=== PATIENT | male | born 1970 | race Caucasian/White ===

== ENCOUNTER 2020-05-04 11:26 | Emergency (ER) | payer SELFPAY ==
[2020-05-04 11:43] VITALS: BP 127/79; PULSE 86; RESP 14; TEMP 36.4; O2SAT 97; BMI 24.3
--- NOTE | 2020-05-04 11:44 | W.ED.EXTPRO ---
HPI - Extremity Problem General: Chief complaint: Fall Stated complaint: R SHOULDER PAIN/INJURY Time Seen by Provider: 05/04/20 11:44 Source: patient Mode of arrival: ambulatory Limitations: no limitations History of Present Illness: HPI Narrative: Patient is a 49-year-old male who presents to ED today reporting that approximately 10 days ago he fractured his left ankle while in [place]. Patient has since traveled back home to [place] and reports he needs a referral for orthopedic follow-up. He states while in [place] another individual accidentally landed onto his ankle causing the fracture. [facility] where extremity was splinted. He has been non-weightbearing since the injury. He does not have any form of discharge papers with him. MD Complaint: joint pain (L ankle) Onset (ago): day(s) Pain Consistency: constant Location: left and lower extremity Radiation: none Associated symptoms: Reports no associated symptoms; Deny chest pain or fever(s) Context: other (recent known fracture) Review of Systems Const: Denies: fever(s) or chills Card: Denies: chest pain Resp: Denies: dyspnea GI: Denies: nausea or vomiting Musc: Reports: joint pain (L ankle); Denies: neck pain, back pain, extremity pain or extremity swelling Physical Exam Const: COMMON NORMALS: no acute distress, average body habitus, patient oriented x3, no limitations, healthy appearing, alert and well nourished GENERAL APPEARANCE: cooperative ORIENTATION/CONSCIOUSNESS: Yes awake, Yes oriented to person, Yes oriented to place and Yes oriented to time Extremity: NARRATIVE EXTREMITY EXAM: R shoulder in sling from rotator cuff surgery that was performed several weeks ago. His L ankle/leg is placed in a short leg posterior splint; toes with some ecchymosis present; toes are warm to the touch with normal cap refill; splint was not removed GENERAL: Yes normal exam except as noted Neuro: COMMON NORMALS: patient oriented x3, moves all extremities, no focal motor deficits, no sensory deficits noted and gait normal (with crutches ) SENSORIUM/ORIENTATION: Yes alert, Yes oriented to person, Yes oriented to place and Yes oriented to time Course Vital Signs: Vital signs: Vital Signs Temperature 97.6 F 05/04/20 11:43 Pulse Rate 86 05/04/20 11:43 Respiratory Rate 14 05/04/20 11:43 Blood Pressure 127/79 05/04/20 11:43 Pulse Oximetry 97 05/04/20 11:43 MDM - Extremity (Nontraumatic) Imaging Data^: XR L ankle: Radiologist's impression: [employer] [address] XRay Report Signed Patient: Bryan Day Unit #: [id number] : [id number] Age/Sex: 49 / M ADM Date: 05/04/20 Loc: ER Room/Bed: Attending Dr: Ordering Provider/Ordering MD: Margarita Su Date of Service: 05/04/20 Procedure(s): XR ankle LT min 3V* [id number] Accession Number(s): [id number] Report Number: [id number] WS: [id number] Exam: XR ankle LT min 3V* [id number] Date/Time of Exam: 05/04/2020 12:18 PM Reason For Exam: injury There is a comminuted oblique fracture involving the metaphysis of the lower fibula. No significant displacement. No other fractures of the ankle are noted. The ankle mortise is well-maintained. Lateral soft tissue swelling. XR/XR ankle LT min 3V* [id number] IMPRESSION: 1. Comminuted nondisplaced fracture of the lower fibula with soft tissue swelling. Dictated By: Luiz Marks DO Signed By: Luiz Marks DO Signed Date/Time: 05/04/20 1243 DD/ 1242 Discharge Plan Discharge Patient Disposition: Home Clinical Impression: Closed fracture of shaft of left fibula Qualifiers: Encounter type: initial encounter Fracture morphology: oblique Fracture alignment: nondisplaced Qualified Code(s): S82.435A - Nondisplaced oblique fracture of shaft of left fibula, initial encounter for closed fracture Condition: Stable Discharge Orders: Discharge ED (Routine); Ordered 05/04/20 Ordered By: Margarita Su Patient Instructions: Opioid Safety Activity Restrictions/Additional Instructions: [facility] epidemic. We are providing ALL patients with information regarding opiate safety. If you received opiate pain medication during your stay or if you received a prescription for opiate pain medication-please review this handout. If not, you may disregard. Thank you. As discussed please stay in your splint at all times. Continue to be non-weightbearing with your crutches. Case management should contact you shortly to set you up with your orthopedic follow-up appointment. Coding Level of Care Code ED Financial Institution President for Maritza Fwd Exam Expanded Problem Focused
--- NOTE | 2020-05-04 11:56 | XR_ITS ---
WS: [id number] Exam: XR ankle LT min 3V* [id number] Date/Time of Exam: 05/04/2020 12:18 PM Reason For Exam: injury There is a comminuted oblique fracture involving the metaphysis of the lower fibula. No significant d isplacement. No other fractures of the ankle are noted. The ankle mortise is well-maintained. Lateral soft tissue swelling. XR/XR ankle LT min 3V* [id number] IMPRESSION: 1. Comminuted nondisplaced fracture of the lower fibula with soft tissue swelli ng.
[2020-05-04 13:02] VITALS: BP 119/82; PULSE 92; RESP 14; O2SAT 97
--- NOTE | 2020-05-05 08:48 | DCPLANNER ---
credit portfolio manager had message to schedule a follow up appointment for patient with ortho. credit portfolio manager called the ortho clinic, spoke with Brie, gave clinic patients information. credit portfolio manager was told that patients information would be printed and reviewed. Clinic will call patient with appointment information.
--- NOTE | 2020-05-06 07:37 | DCPLANNER ---
Patient has a follow up appointment scheduled for , May 07, 2020 at 8:[address] Horvath at [facility]. Clinic will call patient with appointment information.
--- NOTE | 2020-06-03 10:54 | DCPLANNER ---
Patient had a follow up appointment scheduled with Dr. Horvath at ortho on 21 - patient did attend appointment.
== END 2020-05-04 13:03 | disposition home or self-care (01) ==
PROVIDERS: Emergency Provider Physician Assistant
DX: S82.435A Nondisplaced oblique fracture of shaft of left fibula, initial encounter for closed fracture (principal); W50.0XXA Accidental hit or strike by another person, initial encounter
CPT/HCPCS: 73610; 99282

== ENCOUNTER 2020-05-07 08:50 | Outpatient (CLI) | payer SELFPAY | END 2020-05-07 08:51 | disposition home or self-care (01) | LOC: SPT 08:51 | PROVIDERS: Visit Provider Orthopaedic Surgery | DX: Z46.89 Encounter for fitting and adjustment of other specified devices (principal); S82.435D Nondisplaced oblique fracture of shaft of left fibula, subsequent encounter for closed fracture with routine healing; X58.XXXD Exposure to other specified factors, subsequent encounter | CPT/HCPCS: 97760; L4361 ==

== ENCOUNTER 2021-11-07 15:28 | Emergency (ER) | payer MEDICAID, SELFPAY ==
[2021-11-07 15:30] VITALS: BP 149/76; PULSE 79; RESP 18; TEMP 36.5; O2SAT 98; BMI 25.8
--- NOTE | 2021-11-07 16:34 | XRR_ITS ---
PROCEDURE INFORMATION: Exam: XR Right Shoulder Exam date and time: 11/07/2021 4:37 PM Age: 51 years old Clinical indication: Pain; Shoulder; Right; Additional info: R shoulder pain TECHNIQUE: Imaging protocol: Radiologic exam of the Right shoulder. Views: 2 or more views. COMPARISON: No relevant prior studies available. FINDINGS: Bones/joints: Mild chronic AC joint hypertrophy. Minimal inferior glenohumeral joint spurring. No acute fracture dislocation. Soft tissues: Normal. Other findings: Three views submitted. XR/XR shoulder RT min 2V* [id number] IMPRESSION: No acute findings.
--- NOTE | 2021-11-07 16:37 | W.ED.EXTPRO ---
HPI - Extremity Problem General: Chief complaint: Extremity Injury, Lower Stated complaint: Right should pain Time Seen by Provider: 11/07/21 16:37 Source: patient Mode of arrival: ambulatory Limitations: no limitations History of Present Illness: 51-year-old male with a history of right shoulder repair presents to the ER today for worsening right shoulder pain. Patient reports 2 years ago he had his rotator cuff repair. Patient admits he did not follow orders after surgery and did not do the physical therapy and things worsened. Patient was set to have a revision surgery recently however moved to [place] to help his mother. Patient reports he is been lifting on things and doing strenuous work to help her out and now the pain is significantly worse. Patient reports he has a burning pain from his elbow up into his right shoulder. Patient reports he has pain with any range of motion and decreased range of motion. He reports difficulty sleeping at night due to the pain. Patient denies any numbness or tingling in the right hand. Review of Systems General: Reports: 10 or more systems reviewed and unremarkable except in HPI and below PFSH ED PFSH: Social History Smoking and tobacco status: former smoker Alcohol intake: never Physical Exam Const: COMMON NORMALS: no acute distress, average body habitus, patient oriented x3, no limitations, healthy appearing, alert and well nourished Neck/C-Spine: COMMON NORMALS: full ROM and no lymphadenopathy Resp: COMMON NORMALS: normal respiratory effort EFFORT & INSPECTION: Yes able to speak in complete sentences Cardio: COMMON NORMALS: regular rate and regular rhythm RATE: regular rate RHYTHM: regular rhythm Extremity: NARRATIVE EXTREMITY EXAM: Patient has tenderness over the lateral aspect of the right shoulder/scapula. Patient has pain with abduction greater than 45 degrees. No swelling or other deformity is noted. Patient has good strength in the right hand. He does have a positive empty can test of the right shoulder. Neuro: COMMON NORMALS: patient oriented x3 SENSORIUM/ORIENTATION: Yes alert Psych: COMMON NORMALS: mental status grossly normal, Normal thought process present and cooperative THOUGHT PROCESS: Normal thought process present Skin: COMMON NORMALS: no rashes or lesions noted and no wounds GENERAL SKIN EXAM: no rashes or lesions noted Course ED course: 51-year-old male with a history of right shoulder repair presents to the ER today for worsening right shoulder pain. Patient reports 2 years ago he had his rotator cuff repair. Patient admits he did not follow orders after surgery and did not do the physical therapy and things worsened. Patient was set to have a revision surgery recently however moved to [place] to help his mother. Patient reports he is been lifting on things and doing strenuous work to help her out and now the pain is significantly worse. Patient reports he has a burning pain from his elbow up into his right shoulder. Patient reports he has pain with any range of motion and decreased range of motion. He reports difficulty sleeping at night due to the pain. Patient denies any numbness or tingling in the right hand. Will get xray to make sure pt has not done further damage from recent strenuous activity. Reevaluation(s): Reevaluation #1: Care was transferred to Margarita Su PA-C at shift change; waiting on xray results. Time: 16:55 Vital Signs: Vital signs: Vital Signs Temperature 97.7 F 11/07/21 15:30 Pulse Rate 79 11/07/21 15:30 Respiratory Rate 18 11/07/21 15:30 Blood Pressure 149/76 11/07/21 15:30 Pulse Oximetry 98 11/07/21 15:30 Oxygen Delivery Me thod 11/07/21 15:30 MDM - Extremity (Nontraumatic) Medical Decision Making 51-year-old male with a history of right shoulder repair presents to the ER today for worsening right shoulder pain. Patient reports 2 years ago he had his rotator cuff repair. Patient admits he did not follow orders after surgery and did not do the physical therapy and things worsened. Patient was set to have a revision surgery recently however moved to [place] to help his mother. Patient reports he is been lifting on things and doing strenuous work to help her out and now the pain is significantly worse. Patient reports he has a burning pain from his elbow up into his right shoulder. Patient reports he has pain with any range of motion and decreased range of motion. He reports difficulty sleeping at night due to the pain. Patient denies any numbness or tingling in the right hand. Will get xray to make sure pt has not done further damage from recent strenuous activity. We will send home with Medrol Dosepak. Encouraged ice. Will consult with Ortho for further evaluation and treatment. Return to the ER with new or worsening symptoms. Critical Care Time Critical Care Time: Critical Care Time: No Discharge Plan Discharge Patient Disposition: Home Clinical Impression: Chronic right shoulder pain Condition: Stable Prescriptions: New Medrol (Lew) 4 mg tablets,dose pack See Rx Instructions .ROUTE .COMPLEX Qty: 21 0RF Rx Instructions: orally per package directions No Action (DME) CAM WALKER See Rx Instructions .ROUTE .MEDSUPPLY Qty: 1 0RF Rx Instructions: As directed Discharge Orders: Discharge ED (Routine); Ordered 11/07/21 Ordered By: Elizabeth Robertson Discharge Diet: Usual diet Discharge Activity: Increase activity as tolerated Patient Instructions: Opioid Safety Activity Restrictions/Additional Instructions: Medrol Dosepak as prescribed. Apply ice to reduce any pain. Follow-up with Ortho. Return to the ER with new or worsening symptoms. Sign Out Sign Out Data: Sign Out Comment: waiting for xray Last updated by Elizabeth Robertson PA-C at 11/07/21 16:42 Coding Level of Care Code ED Spool Cleaner Hand for Trevg Fwd Exam Detailed
--- NOTE | 2021-11-08 15:42 | DCPLANNER ---
Addendum entered by Michelle Luna 11/18/21 08:25: restaurant manager received the following message from the ortho clinic regarding follow up appointment: no vm set up//mailed letter pt is to call back and schedule with Dr. Jose Original Note: restaurant manager had message to schedule a follow up appointment for patient with ortho. restaurant manager sent patients information to the front office staff at ortho. Patients information will be printed and reviewed. Clinic will call patient with appointment information.
== END 2021-11-07 17:25 | disposition home or self-care (01) ==
PROVIDERS: Emergency Provider Physician Assistant
DX: G89.29 Other chronic pain (principal); M25.511 Pain in right shoulder; Z87.891 Personal history of nicotine dependence
CPT/HCPCS: 73030; 99283

== ENCOUNTER 2021-11-09 07:58 | Emergency (ER) | payer MEDICAID, SELFPAY ==
--- NOTE | 2021-11-09 | XR_ITS ---
WS: [id number] Exam: XR shoulder RT min 2V* [id number] Date/Time of Exam: 11/09/2021 8:29 AM Reason For Exam: pain No acute fracture or dislocation. 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 There is spurring along the inferior margin of the distal clavicle and acromion. Soft tissues are unremarkable. XR/XR shoulder LT min 2V* [id number] IMPRESSION: 1. No fracture or dislocation. 2. Arthrosis and spurring at the AC joint as detailed above.
[2021-11-09 08:01] VITALS: BP 136/95; PULSE 90; RESP 18; TEMP 36.8; O2SAT 97; BMI 25.8
--- NOTE | 2021-11-09 08:28 | ED_ITS ---
HPI - Extremity Problem General: Chief complaint: Extremity Problem,Nontraumatic Stated complaint: left shoulder is in pain Time Seen by Provider: 11/09/21 08:20 Source: patient Mode of arrival: ambulatory History of Present Illness: 51-year-old male presents emergency room complaining of left shoulder pain. He has had this for the last 3 years he states he feels twitchy intermittent pain in the left shoulder he cannot recal l any particular triggering or precipitating episode. MD Complaint: joint pain Onset (ago): year(s) Pain Consistency: intermittent Location: left Quality: sharp Radiation: none Relieving factors: nothing Exacerbating factors: nothing Associated symptoms: Deny chest pain, fever(s) or rash Review of Systems Const: Denies: fever(s), chills, body aches, change in appetite, fatigue or malaise ENMT: Denies: throat pain, ear or mastoid pain, nasal discharge or nasal congestion Card: Denies: chest pain, edema, dyspnea on exertion or orthopnea Resp: Denies: dyspnea, productive cough or non-productive cough GI: Denies: abdominal pain, nausea, vomiting, hematemesis, coffee ground emesis, diarrhea, constipation, bloating, hematochezia or melena : Denies: flank pain, dysuria, urinary frequency or urinary urgency Skin/Breast: Denies: rash or pruritus PFSH ED PFSH: Social History Smoking and tobacco status: former smoker Alcohol intake: never Physical Exam Const: COMMON NORMALS: no acute distress GENERAL APPEARANCE: cooperative and comfortable ORIENTATION/CONSCIOUSNESS: Yes awake, Yes oriented to person, Yes oriented to place and Yes oriented to time HENMT: COMMON NORMALS: normocephalic, atraumatic and hearing grossly normal bilaterally HEAD & SCALP: normocephalic and atraumatic Resp: COMMON NORMALS: normal respiratory effort, No retractions, No use of accessory muscles and clear to auscultation bilaterally AUSCULTATION: clear to auscultation bilaterally Cardio: COMMON NORMALS: regular rate, regular rhythm and No murmurs present (Cardio) RATE: regular rate RHYTHM: regular rhythm GI: COMMON NORMALS: Soft to palpation and No hepatosplenomegaly present AUSCULTATION: Yes normoactive bowel sounds PALPATION: Yes Soft to palpation, No Tenderness to palpation present (GI), No Guarding due to palpation present (GI) and Yes No hepatosplenomegaly present Extremity: OTHER: Mild impingement sign pain with AB duction. Steroid taper anti-inflammatories follow-up with Ortho Neuro: SENSORIUM/ORIENTATION: Yes oriented to person, Yes oriented to place and Yes oriented to time Skin: COMMON NORMALS: no rashes or lesions noted GENERAL SKIN EXAM: no rashes or lesions noted Course Vital Signs: Vital signs: Vital Signs Temperature 98.2 F 11/09/21 08:01 Pulse Rate 90 11/09/21 08:01 Respiratory Rate 18 11/09/21 08:01 Blood Pressure 136/95 11/09/21 08:01 Pulse Oximetry 97 11/09/21 08:01 Oxygen Delivery Me thod 11/09/21 08:01 MDM - Extremity (Nontraumatic) Medical Decision Making Steroid taper and anti-inflammatories, refer to Ortho Lab Data I reviewed the patient's lab results. Radiology Impressions Shoulder X-Ray 11/09/21 00:00 IMPRESSION: 1. No fracture or dislocation. 2. Arthrosis and spurring at the AC joint as detailed above. Discharge Plan Discharge Patient Disposition: Home Clinical Impression: Acute pain of left shoulder Condition: Stable Prescriptions: New diclofenac sodium 75 mg tablet,delayed release (DR/EC) 75 mg PO Q12H PRN (Reason: pain) Qty: 20 0RF No Action (DME) CAM WALKER See Rx Instructions .ROUTE .MEDSUPPLY Qty: 1 0RF Rx Instructions: As directed Mobic 7.5 mg Tablet 7.5 mg PO DAILY Flomax 0.4 mg Capsule 0.4 mg PO QAM multivitamin Tablet 1 tab PO DAILY methylprednisolone [Medrol (Lew)] 4 mg tablets,dose pack See Rx Instructions .ROUTE .COMPLEX Qty: 21 0RF Rx Instructions: orally per package directions Reglan 10 mg tablet 10 mg PO Q6H PRN (Reason: headache) Qty: 10 0RF Discharge Orders: Discharge ED (Routine); Ordered 11/09/21 Ordered By: Steve Rivas Discharge Diet: Usual diet Discharge Activity: Limit activity as instructed Patient Instructions: Opioid Safety Activity Restrictions/Additional Instructions: Avoid use of left arm above shoulder level. Complete steroids given 2 days ago. You are also given a prescription for an anti-inflammatory to take 1 twice daily as needed. consumer affairs manager will make arrangements for you to see orthopedics. Coding Level of Care Code ED Land Development Project Manager for Maritza Tapia
--- NOTE | 2021-11-09 08:29 | XR_ITS ---
WS: [id number] Exam: XR shoulder RT min 2V* [id number] Date/Time of Exam: 11/09/2021 8:29 AM Reason For Exam: pain No acute fracture or dislocation. 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 There is spurring along the inferior margin of the distal clavicle and acromion. Soft tissues are unremarkable.
[2021-11-09] MEDS: ketorolac 60 mg/2 mL INJ IM (08:57)
[2021-11-09] MEDS: orphenadrine 30 mg/mL Inj 2 mL 60 MG IM (09:02)
--- NOTE | 2021-11-09 13:30 | DCPLANNER ---
reo asset manager had message to schedule a follow up appointment for patient with ortho. Please refer to patient visit on 11.07.21, where case consultant made referral to ortho from that visit.
== END 2021-11-09 09:22 | disposition home or self-care (01) ==
PROVIDERS: Emergency Provider Family Medicine
DX: M25.512 Pain in left shoulder (principal); Z87.891 Personal history of nicotine dependence
CPT/HCPCS: 73030; 96372; 99284; J1885; J2360

== ENCOUNTER 2021-11-14 12:19 | Emergency (ER) | payer MEDICAID, SELFPAY ==
[2021-11-14 12:36] VITALS: BP 117/71; PULSE 90; RESP 18; TEMP 36.6; O2SAT 96; BMI 25.8
--- NOTE | 2021-11-14 13:13 | CTR_ITS ---
PROCEDURE INFORMATION: Exam: CT Head Without Contrast Exam date and time: 11/14/2021 2:15 PM Age: 51 years old Clinical indication: Pain; Headache; Additional info: Head injury, worsening headache TECHNIQUE: Imaging protocol: Computed tomography of the head without contrast. Radiation optimization: All CT scans at this facility use at least one of these dose optimization techniques: automated exposure control; mA and/or kV adjustment per patient size (includes targeted exams where dose is matched to clinical indication); or iterative reconstruction. COMPARISON: No relevant prior studies available. RADIATION DOSE METRICS: Total DLP (mGy-cm): 1030.88 FINDINGS: Brain: Normal. No hemorrhage. Unremarkable white matter. No mass effect. Cerebral ventricles: No ventriculomegaly. Paranasal sinuses: Moderate right sphenoid sinus disease. Moderate bilateral ethmoid sinus disease. Mastoid air cells: The left mastoid air cells are under pneumatized which is a developmental normal variant. Bones/joints: Unremarkable. No acute fracture. Soft tissues: Unremarkable. CT/CT head wo con* [id number] IMPRESSION: 1. Moderate right sphenoid sinus disease. 2. Moderate bilateral ethmoid sinus disease. 3. No acute intracranial findings.
--- NOTE | 2021-11-14 16:20 | ED_ITS ---
HPI - Headache General: Chief Complaint: Headache Stated Complaint: headache Time Seen by Provider: 11/14/21 16:20 History of Present Illness: Mr. Dhaliwal is a 51-year-old gentleman who presents to the emergency department due to headache and generalized symptoms. He reports onset of symptoms after hitting his head on a 55 gallon drum approximately 3 days ago. Currently has moderate to severe generalized head throbbing associated with photosensitivity and nausea. No significant history of migraines. Did not have loss of consciousness associated with this. Additionally has chronic bilateral shoulder pain. Overall course of symptoms have persisted. No other specific changes in health, exacerbating, or alleviating factors identified. Onset (ago): day(s) Onset description: suddenly Location: generalized Severity: severe Quality & Timing: throbbing Exacerbating factors: light and noise Context: recent head injury Review of Systems General: Reports: 10 or more systems reviewed and unremarkable except in HPI and below PFSH ED PFSH: Medical History No significant past medical history Surgical History No significant past surgical history Social History Smoking and tobacco status: former smoker Alcohol intake: never Physical Exam Const: COMMON NORMALS: patient oriented x3 and alert GENERAL APPEARANCE: cooperative and well developed HENMT: COMMON NORMALS: normocephalic and atraumatic HEAD & SCALP: normocephalic and atraumatic THROAT: posterior oropharynx normal Eye: COMMON NORMALS: conjunctivae normal CONJUNCTIVA: Yes conjunctivae normal SCLERA: sclerae normal Neck/C-Spine: COMMON NORMALS: supple GENERAL: Yes trachea midline Resp: COMMON NORMALS: clear to auscultation bilaterally EFFORT & I NSPECTION: Yes able to speak in complete sentences AUSCULTATION: clear to auscultation bilaterally Cardio: COMMON NORMALS: regular rate and regular rhythm RATE: regular rate RHYTHM: regular rhythm GI: COMMON NORMALS: Soft to palpation PALPATION: Yes Soft to palpation and No Tenderness to palpation present (GI) Extremity: NARRATIVE EXTREMITY EXAM: ttp bilateral shoulders generalized-chronic GENERAL: Yes normal exam except as noted and No edema Neuro: COMMON NORMALS: patient oriented x3, CN's II-XII intact bilaterally, moves all extremities, no focal motor deficits and no sensory deficits noted SENSORIUM/ORIENTATION: Yes alert and No Orientation impaired Psych: COMMON NORMALS: mental status grossly normal and Normal thought process present THOUGHT PROCESS: Normal thought process present Course Vital Signs: Vital signs: Vital Signs Temperature 98.2 F 11/14/21 18:24 Pulse Rate 88 11/14/21 18:24 Respiratory Rate 18 11/14/21 18:24 Blood Pressure 120/80 11/14/21 18:24 Pulse Oximetry 96 11/14/21 18:24 Oxygen Delivery Me thod 11/14/21 18:22 MDM - Headache Medical Decision Making 51-year-old gentleman presenting with headache after traumatic injury. No focal neurologic findings though patient does appear uncomfortable. CT head without acute evidence of traumatic injury. Patient improved with migraine cocktail and satisfactory for outpatient management. Medical Records I reviewed the patient's medical records. Lab Data I reviewed the patient's lab results. Radiology Impressions Head CT 11/14/21 13:13 IMPRESSION: 1. Moderate right sphenoid sinus disease. 2. Moderate bilateral ethmoid sinus disease. 3. No acute intracranial findings. Laboratory Results Magnesium 1.7 mg/dL (1.7-2.3) 11/14/21 17:00 Discharge Plan Discharge Patient Disposition: Home Clinical Impression: Postconcussion syndrome, Chronic pain of both shoulders, Headache Condition: Stable Prescriptions: New Reglan 10 mg tablet 10 mg PO Q6H PRN (Reason: headache) Qty: 10 0RF No Action (DME) CRISTOFER CASTAÑEDA See Rx Instructions .ROUTE .MEDSUPPLY Qty: 1 0RF Rx Instructions: As directed diclofenac sodium 75 mg tablet,delayed release (DR/EC) 75 mg PO Q12H PRN (Reason: pain) Qty: 20 0RF Mobic 7.5 mg Tablet 7.5 mg PO DAILY Flomax 0.4 mg Capsule 0.4 mg PO QAM multivitamin Tablet 1 tab PO DAILY methylprednisolone [Medrol (Lew)] 4 mg tablets,dose pack See Rx Instructions .ROUTE .COMPLEX Qty: 21 0RF Rx Instructions: orally per package directions prednisone 20 mg tablet 20 mg PO TID Qty: 15 0RF Rx Instructions: 1 p.o. 3 times daily x3 days, 1 p.o. twice daily x2 days, 1 p.o. daily x2 days hydroxyzine HCl 25 mg tablet 25 mg PO Q4H PRN (Reason: itching) Qty: 20 0RF Discharge Orders: Discharge ED (Routine); Ordered 11/14/21 Ordered By: Rodolfo Schmidt Discharge Diet: Usual diet Discharge Activity: Increase activity as tolerated Patient Instructions: Acute Headache (ED), Post Concussion Syndrome (ED) Activity Restrictions/Additional Instructions: Thank you for visiting the emergency department. You were seen and evaluated for headache after head injury. The exact cause of your symptoms is unclear though likely related to postconcussive type syndrome. We are pleased that you had improvement. I will prescribe a medication that you can combine with Benadryl and acetaminophen and or ibuprofen for continued symptom treatment. Please also ensure that you are staying hydrated. I will have case management follow-up with you regarding your orthopedic referral and also questions regarding insurance. Return to the emergency department for worsening symptoms or anything else that you are concerned about a feel needs emergency department evaluation. Coding Level of Care Code ED Quenching Machine Operator for Maritza Tapia
[2021-11-14] MEDS: lactated ringers 1,000 ML 999 ML IV (17:01)
[2021-11-14] MEDS: ketorolac 30 mg/mL INJ 15 MG IVP (17:01)
[2021-11-14] MEDS: dexamethasone 10 mg/mL INJ IVP (17:01)
[2021-11-14] MEDS: diphenhydrAMINE 50 mg/mL SDV 1mL 25 MG IVP (17:01)
[2021-11-14] MEDS: metoclopramide 5 mg/mL SDV 2 mL 10 MG IVP (17:02)
[2021-11-14 17:36] LABS: Magnesium 1.7 mg/dL (1.7-2.3)
[2021-11-14 18:22] VITALS: BP 120/80; PULSE 88; RESP 18; TEMP 36.8; O2SAT 96
[2021-11-14 18:24] VITALS: BP 120/80; PULSE 88; RESP 18; TEMP 36.8; O2SAT 96
--- NOTE | 2021-11-17 10:04 | DCPLANNER ---
accounting manager cpa had message to speak with patient about insurance options. accounting manager cpa called phone number [phone], unable to speak with patient at this time. A voicemail was left on this number for patient to return rn case management phone call. accounting manager cpa called phone number [phone] which is patients mother, this number was unavailable. accounting manager cpa also had message to schedule a follow up appointment for patient with ortho. accounting manager cpa has referred patient to ortho from his visit on 11.07.21. accounting manager cpa received the following message from the clinic regarding follow up appointment: no vm set up//mailed letter pt is to call back and schedule with Dr. Jose
== END 2021-11-14 18:27 | disposition home or self-care (01) ==
PROVIDERS: Emergency Provider Emergency Medicine
DX: F07.81 Postconcussional syndrome (principal); R51.9 Headache, unspecified; G89.29 Other chronic pain; M25.512 Pain in left shoulder; M25.511 Pain in right shoulder; Z87.891 Personal history of nicotine dependence
CPT/HCPCS: 36415; 70450; 83735; 96374; 96375; 99285; J1100; J1200; J1885; J2765

== ENCOUNTER 2021-11-18 08:42 | Emergency (ER) | payer MEDICAID, SELFPAY ==
[2021-11-18 08:49] VITALS: BP 126/84; PULSE 106; RESP 18; TEMP 36.4; O2SAT 97
[2021-11-18 08:54] VITALS: BMI 25.8
[2021-11-18 09:09] VITALS: BP 124/81; PULSE 87; RESP 18; TEMP 36.4; O2SAT 96
[2021-11-18] MEDS: diphenhydrAMINE 50 mg/mL SDV 1mL IM (09:42)
--- NOTE | 2021-11-18 10:20 | W.ED.ALLEREA ---
HPI - Allergic Reaction General: Chief complaint: Allergic Reaction Stated complaint: rash Time Seen by Provider: 11/18/21 08:54 Source: patient Mode of arrival: ambulatory History of Present Illness: HPI narrative: 51-year-old male who presents to the emergency room with complaints of a allergic reaction. He has an allergic reaction on the upper chest back shoulders and upper arms. No difficulty breathing no stridor began yesterday he cannot recall anything that seem to precipitate it. No fever sweats or chills. Associated symptoms: Deny abdominal pain, nausea or vomiting Review of Systems Const: Denies: fever(s), chills, body aches, change in appetite, fatigue or malaise ENMT: Denies: throat pain, ear or mastoid pain, nasal discharge or nasal congestion Card: Denies: chest pain, edema, dyspnea on exertion or orthopnea Resp: Denies: dyspnea, productive cough or non-productive cough GI: Denies: abdominal pain, nausea, vomiting, hematemesis, coffee ground emesis, diarrhea, constipation, bloating, hematochezia or melena : Denies: flank pain, dysuria, urinary frequency or urinary urgency Skin/Breast: Reports: rash and pruritus PFS ED PFSH: Medical History No significant past medical history Surgical History No significant past surgical history Social History Smoking and tobacco status: former smoker Alcohol intake: never Physical Exam Const: COMMON NORMALS: no acute distress GENERAL APPEARANCE: cooperative and comfortable ORIENTATION/CONSCIOUSNESS: Yes awake, Yes oriented to person, Yes oriented to place and Yes oriented to time HENMT: COMMON NORMALS: normocephalic, atraumatic, hearing grossly normal bilaterally, external ears normal, EAC's normal, TM's normal bilaterally, Normal nasal mucous membranes and turbinates present, moist oral mucous membranes and oropharynx normal HEAD & SCALP: normocephalic and atraumatic NOSE: Normal nasal mucous membranes and turbinates present EXTERNAL EAR: Yes external ears normal EXTERNAL AUDITORY CANAL: EAC's normal TYMPANIC MEMBRANE: TM's normal bilaterally Eye: COMMON NORMALS: Equal, round and reactive pupils present, EOMs intact bilaterally, conjunctivae normal and no scleral icterus CONJUNCTIVA: Yes conjunctivae normal PUPIL: Yes Equal, round and reactive pupils present Neck/C-Spine: COMMON NORMALS: full ROM, no lymphadenopathy, supple and no JVD Lymph: LYMPHATIC: no lymphadenopathy noted and no lymphedema noted Resp: COMMON NORMALS: normal respiratory effort, No retractions, No use of accessory muscles and clear to auscultation bilaterally AUSCULTATION: clear to auscultation bilaterally Cardio: COMMON NORMALS: no JVD, regular rate, regular rhythm and No murmurs present (Cardio) RATE: regular rate RHYTHM: regular rhythm GI: COMMON NORMALS: Soft to palpation and No hepatosplenomegaly present AUSCULTATION: Yes normoactive bowel sounds PALPATION: Yes Soft to palpation, No Tenderness to palpation present (GI), No Guarding due to palpation present (GI) and Yes No hepatosplenomegaly present Extremity: COMMON NORMALS: normal to inspection, capillary refill normal, no clubbing, cyanosis or edema, no calf tenderness and no pedal edema Neuro: SENSORIUM/ORIENTATION: Yes oriented to person, Yes oriented to place and Yes oriented to time Skin: OTHER: Mild erythematous rash right upper chest and proximal humerus over the extending over the shoulder no abscess no vesicles Course Vital Signs: Vital signs: Vital Signs Temperature 97.6 F 11/18/21 10:24 Pulse Rate 72 11/18/21 10:24 Respiratory Rate 18 11/18/21 10:24 Blood Pressure 137/89 11/18/21 10:24 Pulse Oximetry 97 11/18/21 10:24 Oxygen Delivery Me thod 11/18/21 09:09 MDM - Allergic Reaction Medical Decision Making Hydroxyzine to use as needed can use topical [id number]-saoxvuq steroids follow-up with primary care. Patient had a previous visit for his shoulder. He was referred to Ortho but did not been able to contact him as his referral information was given to him today. Discharge Plan Discharge Patient Disposition: Home Clinical Impression: Allergic reaction Condition: Stable Prescriptions: New hydroxyzine HCl 25 mg tablet 25 mg PO Q4H PRN (Reason: itching) Qty: 20 0RF No Action [id number]-[id number] [Fioricet] 50-300-40 mg capsule 1 cap PO Q6H PRN (Reason: headache) Qty: 30 0RF Rx Instructions: take at start of headache diclofenac sodium 75 mg tablet,delayed release (DR/EC) 75 mg PO Q12H PRN (Reason: pain) Qty: 20 0RF Mobic 7.5 mg Tablet 7.5 mg PO DAILY Flomax 0.4 mg Capsule 0.4 mg PO QAM multivitamin Tablet 1 tab PO DAILY Reglan 10 mg tablet 10 mg PO Q6H PRN (Reason: headache) Qty: 10 0RF Discharge Orders: Discharge ED (Routine); Ordered 11/18/21 Ordered By: Steve Rivas Activity Restrictions/Additional Instructions: Localized allergic reaction that looks like a contact reaction. Follow-up with your primary care doctor if it does not improve. You had previous emergency room visits for shoulder pain which we are unable to make contact with you on the follow-up. You have an appointment scheduled for November 30 a.m. in the orthopedic clinic with Dr. Orlando. The phone number to call to confirm or if you need to change that time is [phone] Coding Level of Care Code ED Multifocal Button Grinder for Maritza Tapia
[2021-11-18 10:24] VITALS: BP 137/89; PULSE 72; RESP 18; TEMP 36.4; O2SAT 97
== END 2021-11-18 10:27 | disposition home or self-care (01) ==
PROVIDERS: Emergency Provider Family Medicine
DX: T78.40XA Allergy, unspecified, initial encounter (principal); Z87.891 Personal history of nicotine dependence
CPT/HCPCS: 96372; 96374; 99284; J1200; J2930

== ENCOUNTER 2021-12-13 08:03 | Emergency (ER) | payer MEDICAID, SELFPAY ==
[2021-12-13 08:04] VITALS: BP 102/71; PULSE 82; RESP 16; TEMP 36.4; O2SAT 97; BMI 27.2
--- NOTE | 2021-12-13 08:21 | W.ED.EXTPRO ---
HPI - Extremity Problem General: Chief complaint: Extremity Injury, Upper Stated complaint: right shoulder pain Time Seen by Provider: 12/13/21 08:07 History of Present Illness: Patient is a 51-year-old male comes to the ED with chronic right shoulder pain. Patient has a history of right shoulder rotator cuff surgery. He was living in [place] for the past several years and was scheduled to have another surgery on his right shoulder rotator cuff this October in [place] but he missed that because he had to come to help take care of his mother. He had an MRI done of his right shoulder out in [place]. Denies any acute injury or trauma to his right shoulder and says all of his pain is chronic. Associated symptoms: Deny chest pain, fever(s) or rash Review of Systems Const: Denies: fever(s), chills or fatigue Eyes: Denies: change in vision or eye discomfort ENMT: Denies: throat pain, odynophagia, nasal discharge or nasal congestion Card: Denies: chest pain, palpitations, edema, swelling of feet/ankles, dyspnea on exertion or orthopnea Resp: Denies: dyspnea, productive cough or non-productive cough GI: Denies: abdominal pain, nausea, vomiting, diarrhea, constipation or hematochezia : Denies: flank pain, difficulty urinating, dysuria or hematuria Musc: Reports: extremity pain (Right shoulder); Denies: neck pain, back pain or extremity swelling Skin/Breast: Denies: rash or new lesions Neuro: Denies: headache(s), numbness in extremities or weakness in extremities [facility] ED PFSH: Medical History No significant past medical history Surgical History No significant past surgical history Social History Smoking and tobacco status: former smoker Alcohol intake: never Physical Exam Const: COMMON NORMALS: no acute distress, patient oriented x3, healthy appearing and alert GENERAL APPEARANCE: cooperative and comfortable HENMT: COMMON NORMALS: normocephalic HEAD & SCALP: normocephalic MOUTH: Normal oral and palatal mucosa present THROAT: posterior oropharynx normal and uvula midline Neck/C-Spine: COMMON NORMALS: supple GENERAL: Yes normal visual inspection Resp: COMMON NORMALS: normal respiratory effort, No retractions, No use of accessory muscles and clear to auscultation bilaterally AUSCULTATION: clear to auscultation bilaterally Cardio: COMMON NORMALS: regular rate, regular rhythm, S1 normal heart sound present, S2 normal heart sound present, No gallops present (Cardio), No clicks present (Cardio), No murmurs present (Cardio) and Peripheral pulses 2+ throughout RATE: regular rate RHYTHM: regular rhythm HEART SOUNDS: S1 normal heart sound present and S2 normal heart sound present PERIPHERAL PULSES: Peripheral pulses 2+ throughout GI: COMMON NORMALS: Normal to inspection, nondistended, normoactive bowel sounds present, Soft to palpation, non-tender and no masses PALPATION: Yes Soft to palpation : COMMON NORMALS: Yes no CVA tenderness BLADDER/KIDNEY EXAM: Yes no CVA tenderness Back/Pelvis: COMMON NORMALS: no CVA tenderness Extremity: NARRATIVE EXTREMITY EXAM: Right shoulder?limited range of motion due to pain. No visible deformity or swelling seen. Neurovascular tact. Neuro: COMMON NORMALS: patient oriented x3 SENSORIUM/ORIENTATION: Yes alert GAIT: Yes Normal gait present Skin: GENERAL SKIN EXAM: dry skin Course Vital Signs: Vital signs: Vital Signs Temperature 97.5 F L 12/13/21 08:04 Pulse Rate 81 12/13/21 08:47 Respiratory Rate 16 12/13/21 08:47 Blood Pressure 102/71 12/13/21 08:04 Pulse Oximetry 97 12/13/21 08:47 Oxygen Delivery Me thod 12/13/21 08:04 MDM - Extremity (Nontraumatic) Medical Decision Making Patient is a 51-year-old male comes to the ED with chronic right shoulder pain. Patient has a history of right shoulder rotator cuff surgery. Is any injury or trauma to cause shoulder pain. Vitals are stable. Patient has limited range of motion in right shoulder due to pain but he has no visible deformity or swelling seen. Neurovascular tact. Patient had x-rays done of his right shoulder back on November 09, 2021 and that just showed some degenerative changes and arthrosis at the AC joint but no other acute findings. No repeat x-rays done since he has no other injury and no change in his chronic right shoulder pain. I placed an order with case management for patient to be referred to Ortho for follow-up on chronic right shoulder pain. Return to ED precautions given. Patient was discharged home with a prescription for Celebrex for pain. Discharge Plan Discharge Patient Disposition: Home Clinical Impression: Chronic pain in right shoulder Condition: Stable Prescriptions: New Celebrex 100 mg capsule 100 mg PO BID PRN (Reason: pain) Qty: 20 0RF No Action [id number]-[id number] [Fioricet] 50-300-40 mg capsule 1 cap PO Q6H PRN (Reason: headache) Qty: 30 0RF Rx Instructions: take at start of headache diclofenac sodium 75 mg tablet,delayed release (DR/EC) 75 mg PO Q12H PRN (Reason: pain) Qty: 20 0RF Mobic 7.5 mg Tablet 7.5 mg PO DAILY Flomax 0.4 mg Capsule 0.4 mg PO QAM multivitamin Tablet 1 tab PO DAILY Reglan 10 mg tablet 10 mg PO Q6H PRN (Reason: headache) Qty: 10 0RF hydroxyzine HCl 25 mg tablet 25 mg PO Q4H PRN (Reason: itching) Qty: 20 0RF Discharge Orders: Discharge ED (Routine); Ordered 12/13/21 Ordered By: Ramirez Jose Referrals: Hossein Luque FNP [Primary Care Provider] - Discharge Diet: Regular Discharge Activity: Increase activity as tolerated Patient Instructions: Shoulder Pain (ED) Activity Restrictions/Additional Instructions: Follow-up with medical provider as directed. Case management should be counting in the next several days set up an appointment with Ortho for follow-up. Take medications as prescribed. Return to the ER or your medical provider if condition worsens. Please read and understand discharge instructions. Thank you for choosing [facility] for your healthcare needs today. Please realize this is an emergency room and that we are providing you with a medical screening exam and this may not be complete and all inclusive of all the testing and or work up that you may need to determine your ailment or severity of your illness. It is very important that you follow up as instructed or that you return to the Emergency Department should you have concerns or if your condition changes or worsens in any way. Coding Level of Care Code ED Development Specialist for Maritza Tapia Exam Comprehensive
[2021-12-13] MEDS: ketorolac 60 mg/2 mL INJ IM (08:26)
[2021-12-13 08:47] VITALS: PULSE 81; RESP 16; O2SAT 97
--- NOTE | 2021-12-13 10:13 | DCPLANNER ---
Addendum entered by Michelle Luna 02/21/22 15:24: Patient had a follow up appointment scheduled with ortho - patient did attend appointment. Addendum entered by Michelle Luna 12/14/21 05:47: Patient has a follow up appointment scheduled for Tuesday, December 21, 2021 at 3:[address] Orlanod at ortho. Clinic will call patient with appointment information. Original Note: manager laboratory had message to schedule to schedule a follow up appointment with ortho. manager laboratory sent patients information to the front office staff at ortho. Patients information will be printed and reviewed. Clinic will call patient with appointment information.
== END 2021-12-13 08:49 | disposition home or self-care (01) ==
PROVIDERS: Emergency Provider Physician Assistant; PCP Nurse Practitioner Family
DX: G89.29 Other chronic pain (principal); M25.511 Pain in right shoulder; M19.011 Primary osteoarthritis, right shoulder; Z87.891 Personal history of nicotine dependence; Z98.890 Other specified postprocedural states
CPT/HCPCS: 96372; 99284; J1885

== ENCOUNTER 2022-01-02 07:57 | Emergency (ER) | payer MEDICAID, SELFPAY ==
[2022-01-02 08:20] VITALS: BP 157/99; PULSE 100; RESP 17; O2SAT 98
[2022-01-02] MEDS: cyclobenzaprine 10 mg Tablet PO (08:51)
[2022-01-02] MEDS: ketorolac 30 mg/mL INJ IM (08:51)
[2022-01-02 08:59] VITALS: BP 145/99; PULSE 85; RESP 14; O2SAT 97
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
[2022-01-02 09:32] VITALS: BP 157/94; PULSE 65; RESP 18; O2SAT 96
== END 2022-01-02 09:34 | disposition home or self-care (01) ==
PROVIDERS: Emergency Provider Emergency Medicine
DX: R51.9 Headache, unspecified (principal); M75.101 Unspecified rotator cuff tear or rupture of right shoulder, not specified as traumatic; M62.830 Muscle spasm of back
CPT/HCPCS: 96372; 99284; J1885

== ENCOUNTER 2022-02-15 09:05 | Outpatient (CLI) | payer MEDICAID, SELFPAY ==
--- NOTE | 2022-02-15 09:30 | MR_ITS ---
WS: [id number] MRI RIGHT SHOULDER NONCONTRAST TECHNIQUE: Sagittal T2, coronal T1, T2 and proton density imaging. Axial gradient PDE imaging. CLINICAL INFORMATION: M75.101 - Unspecified rotator cuff tear or rupture of rig... COMPARISON: None. FINDINGS: Advanced degenerative arthritis AC joint. Mild downsloping acromion. Narrowing of the subacromial spa ce. Evidence of prior rotator cuff repair with rotator cuff anchors. Fluid and edema at the AC joint. Susceptibility artifact from rotator cuff anchors degrades some images. Chronic appearing high-grade tears of the supraspinatus distally and infraspinatus. Tiny amount of supraspinatus tendon anterior laterally. Normal teres minor. Subscapularis tendon appears grossly intact. Proximal biceps tendon wi thin the bicipital groove is not visualized. Intra-articular biceps tendon appears intact. Degenerati ve fraying of the glenoid labrum. MR/MR shoulder RT wo con* [id number] IMPRESSION: 1. Advanced degenerative arthritis at the AC joint with fluid and edema. Moder ate downsloping of the acromium with narrowing of the subacromial space. 2. Chronic appearing high-grade tears of the supraspinatus and infraspinatus. Small amount of residual supraspinatus tendon distally. 3. Biceps tendon absent from the bicipital groove. 4. Biceps labral anchor and intra-articular biceps tendon appears intact.
== END 2022-02-15 09:06 | disposition home or self-care (01) ==
PROVIDERS: PCP Nurse Practitioner Family; Visit Provider Orthopaedic Surgery
DX: M75.101 Unspecified rotator cuff tear or rupture of right shoulder, not specified as traumatic (principal); M19.011 Primary osteoarthritis, right shoulder
CPT/HCPCS: 73221

== ENCOUNTER 2022-04-14 05:45 | Day surgery (SDC) | payer MEDICAID, SELFPAY ==
[2022-04-13 10:53] VITALS: BMI 25.8
[2022-04-14] VITALS (8 sets, daily range): BP systolic 122–140; BP diastolic 83–93; PULSE 56–91; RESP 16–17; TEMP 36.4–36.6; O2SAT 96–100
[2022-04-14] MEDS: sodium chloride 0.9% 1,000 ML 30 ML IV (06:17)
[2022-04-14] MEDS: acetaminophen 500 mg Tablet 1000 MG PO (06:17)
[2022-04-14] MEDS: gabapentin 300 mg Capsule PO (06:18)
[2022-04-14] MEDS: oxyCODONE 20 mg ER (12 HR) Tablet PO (06:19)
--- NOTE | 2022-04-14 06:43 | ECG_ITS ---
[facility] Test Date: 2022-04-14 Pat Name: Bryan Day Department: Room: Gender: Male Electronic Technician: : 1970 Requested By: Clark Pedro Order Number: [id number] Usha MD: Amberly Mix M.D. Measurements Intervals Wendel Rate: 77 P: 62 CO: 153 QRS: 53 QRSD: 86 T: 54 QT: 375 QTc: 427 Interpretive Statements SINUS RHYTHM INTERPRETATION BASED ON A DEFAULT AGE OF 40 YEARS No previous ECG available for comparison Electronically Signed On 04-14-2022 8:37:41 FELT PAD CUTTER by Amberly Mix M.D. [email or web address]
--- NOTE | 2022-04-14 06:44 | W.PM.OPSUD ---
Surgery/Procedure H&P Update DATE OF PROCEDURE: April 14, 2022 DATE H&P PERFORMED: 03/23/22 H&P UPDATE INFORMATION: I have reviewed H&P completed within last 30 days PREOP DIAGNOSIS: Rotator cuff tear right shoulder PLANNED PROCEDURE: Operation Date: 04/14/22 07:00 Proposed Procedures s arthroscopic rotator cuff repair right shoulder/19280, M75.101(Right) - Hunter Orlando MD p Rotator Cuff Repair - Arthroscopy(Right) - Hunter Orlando MD
[2022-04-14] MEDS: ceFAZolin 2,000 MG in sodium chloride 0.9% (plus) 50 ML 100 MG IV (07:04)
--- NOTE | 2022-04-14 09:39 | PM.OP ---
Operative Report Date of procedure: April 14, 2022 Pre-op diagnosis: Preop Diagnosis Rotator cuff tear right shoulder Post-op diagnosis: same Procedure done: Arthroscopic repair right rotator cuff with bio inductive implant Implants: Quijaon and Nephew Helicoil 5.5 mm anchor, Quijano and Nephew Regeneten Pathology: none sent Surgeon: Hunter Orlando Anesthesia: General and Nerve Block (Interscalene) Estimated blood loss (mL): 10 Complications: None Findings: The patient had a large U-shaped recurrent tear of his right rotator cuff with the apex medial to the glenoid and approximately 1.5 cm from anterior to posterior over the greater tuberosity. Tendon quality was fair. Evidence of a previous double row repair was identified. One of the medial row anchors was fractured. Loose sutures were identified in remaining anchors consistent with the failed repair. The patient had a flat acromion consistent with a previous acromioplasty. No degenerative changes were identified in the glenohumeral joint. Labral attachments were healthy. The biceps tendon was absent Condition: stable Disposition: PACU Brief History: The patient is a 51-year-old male who underwent a previous right rotator cuff repair with confessed noncompliance in his postoperative regimen. He had continued pain and MRI revealing recurrent tearing. No significant muscular atrophy was identified on the MRI although the tear was fairly large. The patient was counseled and elected to proceed with an attempt at rotator cuff repair Procedure: Patient was taken to the operating room after he was given a interscalene block. He was given 2 g of Ancef. He was prepped and draped in the lateral position with his right arm in traction. A timeout was performed. Scope was initially introduced through the posterior portal made 2 cm inferior medial to the posterior corner of acromion. A scope cannula and trocar were driven into the glenohumeral joint. An anterior working portal was made in the rotator interval. The patient to absence of the biceps tendon. No significant degenerative changes are seen of the humeral head or glenoid and no labral tear is identified. The large scarred retracted tear of the rotator cuff was identified. The scope was then moved to the subacromial space and a anterior working portal directed into the anterior subacromial space. A lateral working portal was opened up with a scalpel blade and a lateral cannula introduced. The scarred retracted rotator cuff was identified. Bursal adhesions were debrided from the undersurface acromion and anterior and posterior deltoid with the Quijano and Nephew Werewolf probe. The extent of the tear could be identified. The articular sided rotator cuff was then released as well. After aggressive releases a large U-shaped tear was identified. The anterior and posterior edges of the tear were identified and and mobilized. It was found that the posterior flap could be brought quite a bit anteriorly and the tear closed in a U-shaped fashion. A Qu[employer]ano and [employer] FirstPass suture passer was used to shuttle a tape suture through the posterior apex of the tear. A sharp suture retriever was placed through the anterior apex grinding the articular plan for the anterior cuff. This was secured using the apex of the tear. This was repeated again approximately a centimeter laterally further converging the tear. Through a lateral stab wound a [employer] Helicoil 5.5 mm anchor was placed in the previous fracture suture anchor hole with excellent purchase. The [employer] FirstPass was used to shuttle 1 limb of tape through the posterior rotator cuff and 1 through the anterior rotator cuff drawing those edges together and to the medialized bone anchor point. The suture was then passed in identical fashion more laterally further closing the apex of the repair. Due to the poor dysvascular quality tendon biological augmentation was chosen. Next a small incision was made in a more lateral distal position of the deltoid and the Quijano [employer] Nephew Regeneten patch was introduced overlying repair. The patch was secured circumferentially with soft tissue alfonzo. Portals were closed with 3-0 Prolene. Sterile dressings were applied. The patient was placed in abduction pillow, extubated, and taken recovery room in stable condition.
--- NOTE | 2022-04-14 10:48 | P.ANESASSM_ITS ---
Pre-Anesthetic Assessment Height/Weight: Height 1.78 m Weight 81.647 kg Temp Pulse Resp BP Pulse Ox O2 Del Method O2 Flow Rate 98 F 59 L 17 122/92 97 6 04/14/22 10:00 04/14/22 10:15 04/14/22 10:15 04/14/22 10:15 04/14/22 10:15 04/14/22 10:15 04/14/22 09:50 Preop Diagnosis: Rotator cuff tear right shoulder Operation Date: 04/14/22 07:00 Proposed Procedures s arthroscopic rotator cuff repair right shoulder/26846, M75.101(Right) - Hunter Orlando MD p Rotator Cuff Repair - Arthroscopy(Right) - Hunter Orlando MD Familial anesthetic complications: none Was Beta Taylor taken within 24 hours: N/A Was Clonidine taken within 24 hours: N/A Last intake: Intake Last Liquid Date 04/13/22 Last Liquid Time 20:00 Last Solid Date 04/13/22 Last Solid Time 18:00 Social Tobacco and No alcohol Exam alert, oriented x 3 and regular rate & rhythm Airway Submandibular: within normal limits Cervical ROM: within normal limits Mallampati: Class II Dentition: false Pulmonary Chronic Obstructive Pulmonary Disease CV/HEM Hypertension Musc/skel Osteoarthritis/DJD Anesthetic Plan ASA status: 3 Anesthesia: General and Regional (specify below) (right interscalene) Medications/Allergies Home Medications Medication Instructions Recorded Confirmed Last Taken Type multivitamin 1 tab PO DAILY 11/09/21 04/13/22 Unknown History metoclopramide HCl 10 mg tablet 10 mg PO Q6H PRN headache #10 tabs 11/14/21 04/13/22 Unknown Rx (Reglan) hydroxyzine HCl 25 mg tablet 25 mg PO Q4H PRN itching #20 tabs 11/18/21 04/13/22 03/30/22 Rx ummnqwihqa-yzfujqmajpqqf-dvfilerx 1 cap PO Q6H PRN headache #30 caps 12/03/21 04/13/22 03/30/22 Rx 50 mg-300 mg-40 mg capsule (Fioricet) celecoxib 100 mg capsule (Celebrex) 100 mg PO BID PRN pain #20 caps 12/13/21 04/13/22 03/30/22 Rx methocarbamol 750 mg tablet 1,500 mg PO QID #30 tabs 01/02/22 04/13/22 Unknown Rx sildenafil 100 mg tablet (Viagra) 100 mg PO DAILY PRN sexual 01/20/22 04/13/22 Unknown Rx activity #10 tabs tamsulosin 0.4 mg capsule (Flomax) 0.4 mg PO .pm #90 caps 01/20/22 04/14/22 04/13/22 Rx oxycodone 5 mg tablet 5 mg PO Q4H PRN pain #40 tabs 04/14/22 Unknown Rx Allergies Allergy/AdvReac Type Severity Reaction Status Date / Time diclofenac [From Voltaren] Allergy Intermediate ALGY-Rash Verified 03/23/22 14:23 Current Medications Generic Name Dose Route Start Last Admin Trade Name Freq PRN Reason Stop Dose Admin Sodium Chloride 1,000 mls @ 30 mls/hr 04/14/22 06:00 04/14/22 08:00 Sodium Chloride 0.9% IV 04/15/22 05:59 Infused .Q24H SHEILA Infusion PFSH Anesthesia Medical History No significant past medical history Surgical History No significant past surgical history Family History Denies family history of Diabetes CAD (coronary artery disease) Lung disease Cancer Hypertension Social History Smoking and tobacco status: current every day smoker Alcohol intake: never Adopted: No Caregiver/support person: No Lives independently: No Household members: family service: No Current occupational status: unemployed and disabled Sexually active: Yes Current gender identity: Male Data Anesthesia Cardiac Studies: No Data to Display Anesthesia Procedures Nerve Block Nerve Block 1: Main Anesthesia: general anesthesia Time Out Performed: Yes Consent: requested by attending/covering physician, from patient, risks a nd benefits reviewed and patient agrees to proceed Nerve block location: interscalene (right) Anesthesia monitors applied: pulse oximetry, EKG, BP cuff and oxygen Nerve block position: semi sitting Anesthetic Used: ropivicaine 0.5% Amount of anesthesia used (mL): 30 Ultrasound used to: recognize landmarks and visualize and ID brachial plexus Nerve Stimulator Used?: No Interscalene/Femoral BLK: 2 stimuplex 22 g needle used for position and inplane approach Injection: neg aspiration of heme Patient Tolerated Procedure: well Complications: none
--- NOTE | 2022-04-14 14:23 | ANE.PACU2 ---
Inpatient post-anesthesia follow up: Airway intact: Yes Vital signs: Temperature 98 F Pulse Rate 59 Respiratory Rate 17 Blood Pressure 122/92 Pulse Oximetry 97 Oxygen Delivery Me thod Room Air Oxygen Flow Rate 6 Fraction of Inspir ed Oxygen Hydration adequate: Yes Nausea and vomiting: No Pain level: 1 Mental status: Baseline
== END 2022-04-14 11:05 | disposition home or self-care (01) ==
PROVIDERS: PCP Nurse Practitioner Family; Visit Provider Orthopaedic Surgery
PROC: (CPT 29805; principal; 2022-04-14 07:00)
PROC: (CPT 29827; 2022-04-14 07:00)
DX: M75.101 Unspecified rotator cuff tear or rupture of right shoulder, not specified as traumatic (principal); J44.9 Chronic obstructive pulmonary disease, unspecified; I10 Essential (primary) hypertension; F17.210 Nicotine dependence, cigarettes, uncomplicated
CPT/HCPCS: 29827; 93005; C1713; J0690; J1100; J1170; J2250; J2370; J2405; J2704; J2710; J2795; J3010; J3490; J7030

== ENCOUNTER → 2022-04-21 08:20 | Outpatient (BNVA) | payer MEDICAID, SELFPAY | PROVIDERS: PCP Nurse Practitioner Family; Visit Provider Nurse Practitioner Family | DX: N40.0 Benign prostatic hyperplasia without lower urinary tract symptoms (principal); N52.9 Male erectile dysfunction, unspecified; R51.9 Headache, unspecified | CPT/HCPCS: 80053; 85025; G0103 ==

== ENCOUNTER → 2022-05-02 08:31 | Outpatient (BNVA) | payer MEDICAID, SELFPAY | PROVIDERS: PCP Nurse Practitioner Family; Visit Provider Podiatrist Foot & Ankle Surgery | DX: I87.2 Venous insufficiency (chronic) (peripheral) (principal); M25.372 Other instability, left ankle | CPT/HCPCS: 73610 ==

== ENCOUNTER 2022-05-02 15:07 | Outpatient (CLI) | payer MEDICAID, SELFPAY | END 2022-05-02 15:08 | disposition home or self-care (01) | LOC: SPT 15:08 | PROVIDERS: PCP Nurse Practitioner Family; Visit Provider Podiatrist Foot & Ankle Surgery | DX: Z46.89 Encounter for fitting and adjustment of other specified devices (principal); M25.372 Other instability, left ankle | CPT/HCPCS: L1902 ==

== ENCOUNTER 2022-08-08 10:57 | Emergency (ER) | payer MEDICAID, SELFPAY ==
[2022-08-08 11:05] VITALS: BP 137/77; PULSE 87; RESP 18; TEMP 36.9; O2SAT 98; BMI 24.3
--- NOTE | 2022-08-08 11:31 | XRR_ITS ---
PROCEDURE INFORMATION: Exam: XR Cervical Spine Exam date and time: 08/08/2022 11:38 AM Age: 52 years old Clinical indication: Neck pain; Additional info: Pain and spasm h. O injury TECHNIQUE: Imaging protocol: Radiologic exam of the cervical spine. Views: 2 or 3 views. COMPARISON: MR shoulder RT wo con* [id number] 02/15/2022 9:44 AM FINDINGS: Bones/joints: Straightening of normal cervical lordosis with slight segmental kyphosis and spondylolisthesis C5-C6, degenerative in nature. Moderate degenerative changes C5-C6 with disc space narrowing endplate sclerosis and osteophytic lipping. Remaining disc heights are maintained. No fracture or subluxation detected. Soft tissues: Unremarkable. XR/XR cervical spine 3V* [id number] IMPRESSION: Degenerative changes C5-C6. No acute bony abnormalities.
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
[2022-08-08] MEDS: ketorolac 30 mg/mL INJ IM (11:53)
[2022-08-08] MEDS: methocarbamol 500 mg Tablet PO (11:55)
== END 2022-08-08 12:21 | disposition home or self-care (01) ==
PROVIDERS: Emergency Provider Emergency Medicine; PCP Nurse Practitioner Family
DX: S16.1XXA Strain of muscle, fascia and tendon at neck level, initial encounter (principal); F17.210 Nicotine dependence, cigarettes, uncomplicated; X58.XXXA Exposure to other specified factors, initial encounter
CPT/HCPCS: 72040; 96372; 99284; J1885

== ENCOUNTER 2022-11-14 09:03 | Emergency (ER) | payer MEDICAID, SELFPAY ==
--- NOTE | 2022-11-14 09:04 | ECG_ITS ---
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 Measurements Intervals [place] Rate: 84 P: 66 NV: 152 QRS: 65 QRSD: 89 T: 66 QT: 355 QTc: 422 Interpretive Statements SINUS RHYTHM Compared to ECG 04/14/2022 06:43:55 No significant changes Electronically Signed On 11-14-2022 22:30:19 CDT by Madan Nunez M.D. [email or web address] county hospitalProMetic Life [email or web address] medical specialty hospital - [email or web address]/store/NU/[id number] f
--- NOTE | 2022-11-14 09:04 | XRR_ITS ---
PROCEDURE INFORMATION: Exam: XR Chest Exam date and time: 11/14/2022 9:12 AM Age: 52 years old Clinical indication: Pain; Chest pressure; Additional info: Chest pain for a year TECHNIQUE: Imaging protocol: Radiologic exam of the chest. Views: 1 view. COMPARISON: CR XR cervical spine 3V* [id number] 08/08/2022 11:38 AM FINDINGS: Lungs: Unremarkable. No consolidation. Pleural spaces: Unremarkable. No pleural effusion. No pneumothorax. Heart/Mediastinum: Unremarkable. No cardiomegaly. Bones/joints: Small osteophytes are present at the bilateral comment clavicular joints, greatest on the right. XR/XR chest 1V portable [id number] IMPRESSION: No acute findings.
[2022-11-14 09:09] VITALS: BP 136/84; PULSE 85; RESP 18; TEMP 36.8; O2SAT 96
--- NOTE | 2022-11-14 09:11 | W.ED.CHESTPA ---
HPI - Chest Pain General: Chief Complaint: Chest Pain Stated Complaint: chest pain Time Seen by Provider: 11/14/22 09:09 Source: patient Mode of arrival: ambulatory History of Present Illness: 52-year-old male presents to the emergency room with complaints of chest pain. He has had this intermittently for the last year primarily presents in the morning. Yesterday had a more intense episode he took a nitro for the it did seem to help. He does walk 6 to 8 miles per day states he walks into town from home and he lives 4 miles out of town he does not get chest pain when he walks. He has been taking aspirin for it intermittently but that does not seem to help. He is a every day smoker he has no history of hypertension hyperlipidemia or diabetes. He has not previously been evaluated for this in the course of the last year. The pain does not radiate he does get sweaty with that sometimes feels a little short of breath he has not noticed anything that exacerbates it other than currently happens in the morning MD complaint: chest pain Onset (ago): year(s) (1) Timing of current episode: episodic Onset: during rest Pain location: substernal Pain radiation: none Severity: moderate Quality: tightness and aching Relieving factors: nitroglycerin Exacerbating factors: nothing Associated symptoms: Reports diaphoresis and dyspnea; Deny abdominal pain, fever(s), leg edema, nausea, palpitations, sense of impending doom, syncope or vomiting Review of Systems Const: Reports: diaphoresis; Denies: fever(s), chills, fatigue or malaise ENMT: Denies: throat pain, ear or mastoid pain, nasal discharge or nasal congestion Card: Reports: chest pain; Denies: palpitations, irregular heart rhythm, edema or syncope Resp: Reports: dyspnea GI: Denies: abdominal pain, nausea or vomiting : Denies: flank pain, dysuria, urinary frequency or urinary urgency Skin/Breast: Denies: rash or pruritus PFS ED PFSH: Medical History No significant past medical history Surgical History No significant past surgical history Family History Denies family history of Diabetes CAD (coronary artery disease) Lung disease Cancer Hypertension Social History Smoking and tobacco status: current every day smoker Alcohol intake: never Substance/Drug Use: never Adopted: No Caregiver/support person: No Lives independently: No Household members: family service: No Current occupational status: unemployed and disabled Sexually active: Yes Do you think of yourself as: Straight/Heterosexual Current gender identity: Male Physical Exam Const: COMMON NORMALS: no acute distress GENERAL APPEARANCE: cooperative and comfortable ORIENTATION/CONSCIOUSNESS: Yes awake, Yes oriented to person, Yes oriented to place and Yes oriented to time HENMT: COMMON NORMALS: normocephalic, atraumatic and hearing grossly normal bilaterally HEAD & SCALP: normocephalic and atraumatic Resp: COMMON NORMALS: normal respiratory effort, No retractions, No use of accessory muscles and clear to auscultation bilaterally AUSCULTATION: clear to auscultation bilaterally Cardio: COMMON NORMALS: regular rate, regular rhythm and No murmurs present (Cardio) RATE: regular rate RHYTHM: regular rhythm GI: COMMON NORMALS: Soft to palpation and No hepatosplenomegaly present AUSCULTATION: Yes normoactive bowel sounds PALPATION: Yes Soft to palpation, No Tenderness to palpation present (GI), No Guarding due to palpation present (GI) and Yes No hepatosplenomegaly present Extremity: COMMON NORMALS: normal to inspection, capillary refill normal, no clubbing, cyanosis or edema, no calf tenderness and no pedal edema Neuro: SENSORIUM/ORIENTATION: Yes oriented to person, Yes oriented to place and Yes oriented to time Skin: COMMON NORMALS: no rashes or lesions noted GENERAL SKIN EXAM: no rashes or lesions noted Course Vital Signs: Vital signs: Vital Signs Temperature 98.2 F 11/14/22 09:09 Pulse Rate 81 11/14/22 09:42 Respiratory Rate 18 11/14/22 09:42 Blood Pressure 136/84 11/14/22 09:42 Pulse Oximetry 98 11/14/22 09:42 Oxygen Delivery Me thod Room Air 11/14/22 09:42 MDM - Chest Pain Medical Decision Making EKG does not show any acute changes cardiac enzymes negative. From his description of things first morning pain is suspect this is a GI cause. He been walking regularly for the entire time he had this walk several miles a day without eliciting pain. Blood pressure is mildly elevated we will start him isosorbide mononitrate has been taking a full size aspirin daily asked him to switch to baby aspirin daily. We will set him up for an outpatient stress test as well. If worsening or change symptoms return avoid exertional activity until his testing is completed Medical Records I reviewed the patient's medical records. Lab Data I reviewed the patient's lab results. 11/14/22 09:13 11/14/22 09:13 Radiology Impressions Chest X-Ray 11/14/22 09:04 IMPRESSION: No acute findings. Laboratory Results WBC 10.44 10^3/uL (3.29-11.43) 11/14/22 09:13 RBC 4.75 10^6/uL (3.85-5.65) 11/14/22 09:13 Hgb 14.00 g/dL (11.27-16.99) 11/14/22 09:13 Hct 42.5 % (37-53) 11/14/22 09:13 MCV 89.5 fl (82-101) 11/14/22 09:13 MCH 29.5 pg (27-33) 11/14/22 09:13 MCHC 32.9 g/dL (30-55) 11/14/22 09:13 RDW 14.9 % (12.1-15.1) 11/14/22 09:13 Plt Count 372 10^3/cmm (157-399) 11/14/22 09:13 MPV 9.7 fL (7.4-10.4) 11/14/22 09:13 Neut % (Auto) 47.8 % 11/14/22 09:13 Lymph % (Auto) 40.8 % 11/14/22 09:13 Moffat % (Auto) 8.0 % 11/14/22 09:13 Eos % (Auto) 2.2 % 11/14/22 09:13 Baso % (Auto) 0.7 % 11/14/22 09:13 Neut # (Auto) 5.00 10^3/uL (1.8-7.7) 11/14/22 09:13 Lymph # (Auto) 4.3 10^3/uL (0.8-4.8) 11/14/22 09:13 Moffat # (Auto) 0.8 10^3/uL (0.2-0.9) 11/14/22 09:13 Eos # (Auto) 0.2 10^3/uL (0.0-0.8) 11/14/22 09:13 Baso # (Auto) 0.1 10^3/uL (0.0-0.1) 11/14/22 09:13 Nucleated RBC % (auto) 0 % 11/14/22 09:13 Nucleated RBCs # 0.0 /100WBC 11/14/22 09:13 Sodium 138 mmol/L (136-145) 11/14/22 09:13 Potassium 4.9 mmol/L (3.5-5.1) 11/14/22 09:13 Chloride 101 mmol/L (98-107) 11/14/22 09:13 Carbon Dioxide 28 mmol/L (22-29) 11/14/22 09:13 Anion Gap 13.9 (5-19) 11/14/22 09:13 BUN 17 mg/dL (6-20) 11/14/22 09:13 Creatinine 0.8 mg/dL (0.7-1.2) 11/14/22 09:13 GFR Calculation 100.7 mL/min (90-130) 11/14/22 09:13 Glucose 75 mg/dL (65-115) 11/14/22 09:13 Calculated Osmolality 286 mOsm/kg (285-295) 11/14/22 09:13 Calcium 9.7 mg/dL (8.5-10.5) 11/14/22 09:13 Total Bilirubin 0.3 mg/dL (0.15-1.2) 11/14/22 09:13 AST 39 U/L (0-40) 11/14/22 09:13 ALT 45 U/L (0-41) H 11/14/22 09:13 Alkaline Phosphatase 84 U/L (40-130) 11/14/22 09:13 Troponin T Baseline 8 ng/L (0-15) 11/14/22 09:13 Troponin T 120 Minute 6.43 ng/L (0-15) 11/14/22 11:06 Total Protein 7.5 g/dL (6.6-8.7) 11/14/22 09:13 Albumin 4.7 g/dL (3.5-5.2) 11/14/22 09:13 Globulin 2.8 g/dL (1.3-4.6) 11/14/22 09:13 Discharge Plan Discharge Patient Disposition: Home Clinical Impression: Atypical chest pain Condition: Stable Prescriptions: New aspirin 81 mg tablet,delayed release (DR/EC) 81 mg PO DAILY Qty: 30 0RF isosorbide mononitrate 30 mg tablet extended release 24 hr 30 mg PO DAILY Qty: 30 0RF omeprazole 40 mg capsule,delayed release(DR/EC) 40 mg PO DAILY 28 Days Qty: 30 0RF Discontinued aspirin 325 mg Tablet 325 mg PO DAILY PRN (Reason: Chest Pain) sildenafil [Viagra] 100 mg tablet 50 - 100 mg PO DAILY PRN (Reason: sexual activity) Rx Instructions: administer 30 minutes to 4 hours before activity, No Action (DME) shoulder immobilizer with abduction pillow See Rx Instructions .Route .MEDSUPPLY Qty: 1 0RF Rx Instructions: As directed (DME) ASO to left See Rx Instructions .Route .MEDSUPPLY Qty: 1 0RF Rx Instructions: As directed Flomax 0.4 mg capsule 0.4 mg PO QPM Lidoderm 5 % adhesive patch,medicated 1 patch topical Q24H PRN (Reason: Pain) Rx Instructions: leave on most painful area for up to 12 hrs Discharge Orders: Discharge ED (Routine); Ordered 11/14/22 Ordered By: Steve Rivas Referrals: Hossein Luque FNP [Primary Care Provider] - Discharge Diet: Usual diet Discharge Activity: Limit activity as instructed Patient Instructions: Opioid Safety, Pain Management Activity Restrictions/Additional Instructions: Avoid exertional activity Case management make arrangements for you to have a follow-up outpatient stress test Coding Level of Care Code ED Correctional Sergeant for Maritza Tapia
[2022-11-14 09:27] LABS: Basophils # 0.1 10^3/uL (0.0-0.1); Basophils % 0.7 %; Eosinophils # 0.2 10^3/uL (0.0-0.8); Eosinophils % 2.2 %; Hematocrit 42.5 % (37-53); Lymphocytes # 4.3 10^3/uL (0.8-4.8); Lymphocytes % 40.8 %; Mean Corpuscular HGB Conc 32.9 g/dL (30-55); Mean Corpuscular Hemoglobin 29.5 pg (27-33); Mean Corpuscular Volume 89.5 fl (82-101); Mean Platelet Volume 9.7 fL (7.4-10.4); Monocytes # 0.8 10^3/uL (0.2-0.9); Neutrophils % 47.8 %; Nucleated Red Blood Cells % 0 %; Platelet Count 372 10^3/cmm (157-399); Red Blood Count 4.75 10^6/uL (3.85-5.65); Red Cell Distribution Width 14.9 % (12.1-15.1); White Blood Count 10.44 10^3/uL (3.29-11.43)
[2022-11-14 09:42] VITALS: BP 136/84; PULSE 81; RESP 18; O2SAT 98
[2022-11-14 10:12] LABS: Alanine Aminotransferase 45 U/L (0-41); Albumin Level 4.7 g/dL (3.5-5.2); Alkaline Phosphatase 84 U/L (40-130); Anion Gap 13.9 (5-19); Aspartate Amino Transferase 39 U/L (0-40); Blood Urea Nitrogen 17 mg/dL (6-20); Calcium 9.7 mg/dL (8.5-10.5); Carbon Dioxide 28 mmol/L (22-29); Chloride 101 mmol/L (98-107); Globulin 2.8 g/dL (1.3-4.6); Glomerular Filtration Rate 100.7 mL/min (90-130); Glucose 75 mg/dL (65-115); Osmolality Calculated 286 mOsm/kg (285-295); Potassium 4.9 mmol/L (3.5-5.1); Sodium 138 mmol/L (136-145); Total Bilirubin 0.3 mg/dL (0.15-1.2); Total Protein 7.5 g/dL (6.6-8.7)
[2022-11-14 10:13] LABS: Troponin(5th) Baseline 8 ng/L (0-15)
--- NOTE | 2022-11-14 11:04 | ECG_ITS ---
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 Measurements Intervals [place] Rate: 65 P: 58 DC: 152 QRS: 51 QRSD: 85 T: 58 QT: 386 QTc: 402 Interpretive Statements SINUS RHYTHM WITH SINUS ARRHYTHMIA Compared to ECG 11/14/2022 09:04:11 No significant changes Electronically Signed On 11-14-2022 22:33:16 CDT by Madan Nunez M.D. [email or web address] medical specialty hospital - [email or web address]/store/[id number]
[2022-11-14 12:43] LABS: Troponin 5 2HR 6.43 ng/L (0-15); Troponin 5 2HR Delta -1.57 ABS# (0-10)
--- NOTE | 2022-11-15 08:16 | DCPLANNER ---
global project manager had message to schedule an outpatient stress test for patient. global project manager faxed signed order to centralized scheduling, who will call patient with appointment information.
== END 2022-11-14 12:41 | disposition home or self-care (01) ==
PROVIDERS: Physician Assistant; Emergency Provider Family Medicine; PCP Nurse Practitioner Family
DX: R07.89 Other chest pain (principal); Z79.82 Long term (current) use of aspirin; F17.210 Nicotine dependence, cigarettes, uncomplicated
CPT/HCPCS: 71045; 80053; 84484; 85025; 93005; 99285

== ENCOUNTER 2023-02-08 09:34 | Emergency (ER) | payer MEDICAID, SELFPAY ==
--- NOTE | 2023-02-08 09:37 | ECG_ITS ---
[facility] Test Date: 2023-02-08 Pat Name: Bryan Day Department: Room: Gender: Male Psychiatric Security Nurse: : 1970 Requested By: Steve Regalado Order Number: [id number] Usha MD: Du Baez M.D. Measurements Intervals [place] Rate: 75 P: 56 WV: 155 QRS: 68 QRSD: 84 T: 65 QT: 357 QTc: 400 Interpretive Statements SINUS RHYTHM WITH MARKED SINUS ARRHYTHMIA Compared to ECG 11/14/2022 10:52:53 No significant changes Electronically Signed On 02-09-2023 16:44:49 CARD ASSEMBLER by Du Baez M.D. [email or web address] Ousiamerit health river regionMeterHerometrohealth cleveland heights medical centerECORE International/store/NU/[id number] f
[2023-02-08 09:40] VITALS: BP 156/75; PULSE 75; RESP 17; TEMP 36.3; O2SAT 99; BMI 28.1
== END 2023-02-08 10:07 | disposition left against medical advice (07) ==
LOC: ER 09:39
PROVIDERS: Emergency Provider Family Medicine; PCP Nurse Practitioner Family
DX: Z53.21 Procedure and treatment not carried out due to patient leaving prior to being seen by health care provider (principal)
CPT/HCPCS: 93005

== ENCOUNTER 2023-02-15 07:43 | Outpatient (CLI) | payer MEDICAID, SELFPAY ==
[2023-02-15 08:29] VITALS: BMI 27.9
--- NOTE | 2023-02-15 08:30 | ECG_ITS ---
[facility] Test Date: 2023-02-15 Pat Name: Bryan Day Department: Room: Gender: Male Bottom Liquor Attendant: Adán Trammell : 1970 Requested By: Zaria Dee Order Number: [id number] Usha MD: Zaria Dee M.D. Interpretive Statements NAME OF STUDY: EXERCISE SESTAMIBI STRESS TEST INDICATION: Chest Pain PROCEDURE: The baseline electrocardiogram showed normal sinus rhythm with normal ST-Ts occasional PACs. At the baseline, the patient's blood pressure was 100/70 mm Hg with a heart rate of 77. The patient exercised for 8 minutes and 29 seconds on a standard Bryan protocol. Patient attained a maximum heart rate of 151 beats per minute(90% of the maximum predicted heart rate) with a blood pressure at the peak exercise of 147/56 mm Hg. The EKG at the peak exercise revealed [address] depressions in leads II, III,aVF, V5 and V6. Patient did not have any chest pain or any significant arrhythmis with the exercise Sestamibi was injected 1 minute prior to the peak exercise During the recovery phase, there were no new changes. Blood pressure at the end of the recovery phase was 133/74 mm Hg with a heart rate of 97 per minute. CONCLUSION: 1. Borderline abnormal EKG response to treadmill exercise, suggesting inferolateral ischemia 2. No exercise-induced chest pain or cardiac arrhythmia 3. Fair impaired exercise tolerance, attained a maximum of 10.2 METs 4. Sestamibi/Sestamibi perfusion results pending; see separate report. Electronically Signed On 02-24-2023 10:50:20 ANNEALING FURNACE TENDER by Zaria Dee M.D. [email or web address].Platform Solutionsohiohealth berger hospital.eParachute/store/OM/[id number]
--- NOTE | 2023-02-15 08:30 | NMCV_ITS ---
NM clarence perf SPECT r/s* [id number] Bryan Day Age: 52 Gender: M : 1970 Exam Date: 02/15/2023 09:12 Ordering Phys: Zaria Dee MD ([email or web address]) Technologist: MIRIAN Arredondo Exam Location: [facility] Indications: CORONARY ANGIOPLASTY STATUS STRESS TEST Please see separate stress test report in [facility] for full findings IMAGE PROTOCOL Rest/Stress 1 Exercise Day Radiopharmaceutical Dose (mCi) Administration Site Administered by Rest: Tc-99m 11.0 IV MIRIAN Arredondo Sestamibi Stress:Tc-99m 32.6 IV MIRIAN Romero Sestamibi Rest: 15-Feb-2023 60 Discovery 630 Stress: 15-Feb-2023 15 Discovery 630 Radiopharmaceutical was injected at 85 % maximum heart rate. Images obtained in supine and prone position. SPECT RESULTS Technical Quality: Excellent Raw Data Analysis: Normal Image Corrections: No attenuation or motion correction applied Summed Stress Score: 1 Summed Rest Score: 1 Summed Difference Score: 1 PERFUSION FINDINGS A small area of slightly decreased tracer uptake was noted in the mid inferior wall region, with the supine imaging. However with the prone imaging, no significant perfusion abnormalities were noted. FUNCTIONAL RESULTS (calculated via Gated SPECT) Stress Image LV EF (%): 59 Stress EDV (mL):117 TID: 0.88 Stress ESV (mL):48 FUNCTIONAL FINDINGS: Segmental wall motion analysis revealing no gross wall motion abnormalities IMPRESSIONS 1. Myocardial perfusion imaging revealing a small area of reversible defect in the mid inferior wall region suggesting ischemia in the distribution of the right coronary artery. However because of inconsistency, most likely this is a false positive test. 2. Normal LV ejection fraction of 59%. 3. LV wall motion analysis revealing no gross wall motion abnormalities. 4. Normal LV volume Low probability for coronary ischemia, based on the above findings No similar previous studies are available for comparison Dr Zaria Dee MD [facility] (Electronically Signed) Final Date: 15 February 2023 18:15 S
[2023-02-15 10:27] VITALS: BP 133/74; PULSE 92
== END 2023-02-15 07:44 | disposition home or self-care (01) ==
LOC: CDL 07:45
PROVIDERS: Visit Provider Internal Medicine Cardiovascular Disease
DX: R07.9 Chest pain, unspecified (principal); R94.39 Abnormal result of other cardiovascular function study; Z98.61 Coronary angioplasty status
CPT/HCPCS: 36415; 78452; 93017; A9500

== ENCOUNTER 2023-04-09 20:34 | Emergency (ER) | payer MEDICAID, SELFPAY ==
[2023-04-09] VITALS (11 sets, daily range): BP systolic 113–150; BP diastolic 81–93; PULSE 71–86; RESP 17–24; TEMP 36.4; O2SAT 95–97; BMI 25.8
--- NOTE | 2023-04-09 21:17 | CTR_ITS ---
PROCEDURE INFORMATION: Exam: CT Head Without Contrast Exam date and time: 04/09/2023 9:24 PM Age: 52 years old Clinical indication: Pain; Headache; Patient HX: C/O WILSON with hypertension; Additional info: Headache, HTN TECHNIQUE: Imaging protocol: Computed tomography of the head without contrast. Radiation optimization: All CT scans at this facility use at least one of these dose optimization techniques: automated exposure control; mA and/or kV adjustment per patient size (includes targeted exams where dose is matched to clinical indication); or iterative reconstruction. COMPARISON: CT head wo con* [id number] 11/14/2021 2:15 PM RADIATION DOSE METRICS: Total DLP (mGy-cm): 1008.38 FINDINGS: Brain: No acute intracranial hemorrhage. No territorial region of miller-white dedifferentiation. No extra-axial collection. No mass effect or midline shift. Cerebral ventricles: No acute hyrocephalus. Paranasal sinuses: Visualized sinuses demonstrate mild scattered nonobstructive mucosal thickening, similar to slightly decreased from 11/14/2021. No fluid levels. Mastoid air cells: Visualized mastoid air cells are well aerated. Orbital cavities: No acute abnormality. Bones/joints: No acute calvarial fracture. Soft tissues: No acute abnormality. CT/CT head wo con* [id number] IMPRESSION: 1. No acute findings. 2. Scattered nonobstructive paranasal sinus mucosal inflammation, similar to slightly decreased from 11/14/2021.
[2023-04-09 21:50] LABS: Basophils # 0.1 10^3/uL (0.0-0.1); Basophils % 1.2 %; Eosinophils # 0.3 10^3/uL (0.0-0.8); Eosinophils % 4.6 %; Hematocrit 41.7 % (37-53); Lymphocytes # 2.5 10^3/uL (0.8-4.8); Lymphocytes % 41.9 %; Mean Corpuscular HGB Conc 32.4 g/dL (30-55); Mean Corpuscular Hemoglobin 29.2 pg (27-33); Mean Corpuscular Volume 90.1 fl (82-101); Mean Platelet Volume 9.9 fL (7.4-10.4); Monocytes # 0.5 10^3/uL (0.2-0.9); Monocytes % 8.5 %; Neutrophils # 2.54 10^3/uL (1.8-7.7); Neutrophils % 43.3 %; Nucleated Red Blood Cells % 0 %; Platelet Count 321 10^3/cmm (157-399); Red Blood Count 4.63 10^6/uL (3.85-5.65); Red Cell Distribution Width 14.3 % (12.1-15.1); White Blood Count 5.87 10^3/uL (3.29-11.43)
--- NOTE | 2023-04-09 21:59 | W.ED.HA ---
HPI - Headache General: Chief Complaint: Headache Stated Complaint: High BP Time Seen by Provider: 04/09/23 20:45 History of Present Illness: 52-year-old male complaining of a headache. He notes that his headache began around noon today and started suddenly and severely. He has only had these on a couple of occasions. He felt his blood pressure was high, and so went to the store to have his blood pressure checked. It was indeed high. He smoked marijuana to lower his blood pressure. He says that he has been compliant with his medication. He recently had a stress test in February that was not remarkable. Headache is somewhat improved, but not gone. No visual changes. No language problems. No weakness. No vomiting. Associated symptoms: Deny chest pain, confusion, fever(s), nausea, rash or vomiting Review of Systems Const: Denies: fever(s), chills or body aches Eyes: Denies: change in vision Card: Denies: chest pain or palpitations Resp: Denies: dyspnea, productive cough, non-productive cough or wheezing GI: Denies: abdominal pain, nausea, vomiting, diarrhea or hematochezia Skin/Breast: Denies: rash Neuro: Denies: weakness in extremities, dizziness or confusion PFSH ED PFSH: Medical History No significant past medical history Surgical History No significant past surgical history Family History Denies family history of Diabetes CAD (coronary artery disease) Lung disease Cancer Hypertension Social History Smoking and tobacco/nicotine status: current every day tobacco/nicotine user Alcohol intake: never Substance/Drug Use: never Adopted: No Caregiver/support person: No Lives independently: No Household members: family service: No Current occupational status: unemployed and disabled Sexually active: Yes Do you think of yourself as: Straight/Heterosexual Current gender identity: Male Physical Exam Const: COMMON NORMALS: no acute distress GENERAL APPEARANCE: cooperative and appears older than stated age; not ill appearing and not frail appearing HENMT: COMMON NORMALS: normocephalic, atraumatic and Normal external nose present HEAD & SCALP: normocephalic and atraumatic FACE & SINUS: normal facial exam and face symmetric NOSE: Normal external nose present Eye: COMMON NORMALS: Equal, round and reactive pupils present and EOMs intact bilaterally PUPIL: Yes Equal, round and reactive pupils present Neck/C-Spine: GENERAL: Yes trachea midline Chest: CHEST: Yes Symmetrical chest wall rise Resp: COMMON NORMALS: normal respiratory effort, No retractions, No use of accessory muscles and clear to auscultation bilaterally AUSCULTATION: clear to auscultation bilaterally Cardio: COMMON NORMALS: regular rate and regular rhythm RATE: regular rate RHYTHM: regular rhythm GI: COMMON NORMALS: Normal to inspection, nondistended, normoactive bowel sounds present Extremity: COMMON NORMALS: no pedal edema Neuro: OLYA COMA SCALE: document GCS findings Trezevant coma scale eye opening: Spontaneous Olya coma scale verbal response: Orientated Trezevant coma scale motor response: Obey commands Trezevant coma scale total score: 15 SENSORY EXAM: Yes extremities (intact) Psych: COMMON NORMALS: speech normal SPEECH: Yes normal speech Skin: COMMON NORMALS: no rashes or lesions noted GENERAL SKIN EXAM: no rashes or lesions noted Course Vital Signs: Vital signs: Vital Signs Temperature 97.6 F 04/09/23 20:40 Pulse Rate 75 04/09/23 20:53 Respiratory Rate 17 04/09/23 20:53 Blood Pressure 142/89 04/09/23 20:45 Pulse Oximetry 95 04/09/23 20:45 Oxygen Delivery Me thod Room Air 04/09/23 20:53 MDM - Headache Medical Decision Making Headache improved after medication here. CBC is normal. Head CT is not remarkable. There is some mucosal thickening that appears chronic. Other labs not remarkable. The patient's headache is resolved. This is despite the fact that no medication for his head is actually given even though ordered. He will be allowed discharge. His blood pressure is under decent control. The patient wishes to go home. Lab Data 04/09/23 21:41 04/09/23 21:[address] 04/09/23 21:17 IMPRESSION: 1. No acute findings. 2. Scattered nonobstructive paranasal sinus mucosal inflammation, similar to slightly decreased from 11/14/2021. Laboratory Results WBC 5.87 10^3/uL (3.29-11.43) 04/09/23 21:41 RBC 4.63 10^6/uL (3.85-5.65) 04/09/23 21:41 Hgb 13.50 g/dL (11.27-16.99) 04/09/23 21:41 Hct 41.7 % (37-53) 04/09/23 21:41 MCV 90.1 fl (82-101) 04/09/23 21:41 MCH 29.2 pg (27-33) 04/09/23 21:41 MCHC 32.4 g/dL (30-55) 04/09/23 21:41 RDW 14.3 % (12.1-15.1) 04/09/23 21:41 Plt Count 321 10^3/cmm (157-399) 04/09/23 21:41 MPV 9.9 fL (7.4-10.4) 04/09/23 21:41 Neut % (Auto) 43.3 % 04/09/23 21:41 Lymph % (Auto) 41.9 % 04/09/23 21:41 [place] % (Auto) 8.5 % 04/09/23 21:41 Eos % (Auto) 4.6 % 04/09/23 21:41 Baso % (Auto) 1.2 % 04/09/23 21:41 Neut # (Auto) 2.54 10^3/uL (1.8-7.7) 04/09/23 21:41 Lymph # (Auto) 2.5 10^3/uL (0.8-4.8) 04/09/23 21:41 [place] # (Auto) 0.5 10^3/uL (0.2-0.9) 04/09/23 21:41 Eos # (Auto) 0.3 10^3/uL (0.0-0.8) 04/09/23 21:41 Baso # (Auto) 0.1 10^3/uL (0.0-0.1) 04/09/23 21:41 Nucleated RBC % (auto) 0 % 04/09/23 21:41 Nucleated RBCs # 0.0 /100WBC 04/09/23 21:41 Sodium 139 mmol/L (136-145) 04/09/23 21:41 Potassium 4.2 mmol/L (3.5-5.1) 04/09/23 21:41 Chloride 103 mmol/L (98-107) 04/09/23 21:41 Carbon Dioxide 26 mmol/L (22-29) 04/09/23 21:41 Anion Gap 14.2 (5-19) 04/09/23 21:41 BUN 10 mg/dL (6-20) 04/09/23 21:41 Creatinine 0.9 mg/dL (0.7-1.2) 04/09/23 21:41 GFR Calculation 87.9 mL/min (90-130) L 04/09/23 21:41 Glucose 99 mg/dL (65-115) 04/09/23 21:41 Calculated Osmolality 287 mOsm/kg (285-295) 04/09/23 21:41 Calcium 9.6 mg/dL (8.5-10.5) 04/09/23 21:41 Magnesium 1.9 mg/dL (1.7-2.3) 04/09/23 21:41 Total Bilirubin 0.2 mg/dL (0.15-1.2) 04/09/23 21:41 AST 48 U/L (0-40) H 04/09/23 21:41 ALT 41 U/L (0-41) 04/09/23 21:41 Alkaline Phosphatase 81 U/L (40-130) 04/09/23 21:41 NT-Pro-B Natriuret Pep 58 pg/mL (0-125) 04/09/23 21:41 Total Protein 7.3 g/dL (6.6-8.7) 04/09/23 21:41 Albumin 4.3 g/dL (3.5-5.2) 04/09/23 21:41 Globulin 3.0 g/dL (1.3-4.6) 04/09/23 21:41 All radiology interpretation(s) finalized by discharge Discharge Plan Discharge Patient Disposition: Home Clinical Impression: Headache Condition: Stable Prescriptions: No Action (DME) shoulder immobilizer with abduction pillow See Rx Instructions .Route .MEDSUPPLY Qty: 1 0RF Rx Instructions: As directed (DME) ASO to left See Rx Instructions .Route .MEDSUPPLY Qty: 1 0RF Rx Instructions: As directed metoprolol tartrate 25 mg tablet 25 mg PO BID 30 Days Qty: 60 5RF Flomax 0.4 mg capsule 0.4 mg PO QPM Qty: 90 3RF Lidoderm 5 % adhesive patch,medicated 1 patch topical Q24H PRN (Reason: Pain) Rx Instructions: leave on most painful area for up to 12 hrs aspirin 81 mg tablet,delayed release (DR/EC) 81 mg PO DAILY Qty: 30 0RF isosorbide mononitrate 30 mg tablet extended release 24 hr 30 mg PO DAILY Qty: 30 0RF Discharge Orders: Discharge ED (Routine); Ordered 04/09/23 Ordered By: Juan Quiroz Patient Instructions: Acute Headache (ED), Hypertension (ED), Opioid Safety, Pain Management Activity Restrictions/Additional Instructions: Check your blood pressure twice daily. Report numbers to your doctor. Return for worsening headache, speech or language problems, weakness, vomiting, other concerning symptoms. See your doctor this week. Coding Level of Care Code ED Agricultural Research Director for Maritza Tapia
[2023-04-09 22:15] LABS: Alanine Aminotransferase 41 U/L (0-41); Albumin Level 4.3 g/dL (3.5-5.2); Alkaline Phosphatase 81 U/L (40-130); Anion Gap 14.2 (5-19); Aspartate Amino Transferase 48 U/L (0-40); Blood Urea Nitrogen 10 mg/dL (6-20); Calcium 9.6 mg/dL (8.5-10.5); Carbon Dioxide 26 mmol/L (22-29); Chloride 103 mmol/L (98-107); Glomerular Filtration Rate 87.9 mL/min (90-130); Glucose 99 mg/dL (65-115); Magnesium 1.9 mg/dL (1.7-2.3); NT Pro B Type Natriuretic Pept 58 pg/mL (0-125); Osmolality Calculated 287 mOsm/kg (285-295); Potassium 4.2 mmol/L (3.5-5.1); Sodium 139 mmol/L (136-145); Total Bilirubin 0.2 mg/dL (0.15-1.2); Total Protein 7.3 g/dL (6.6-8.7)
== END 2023-04-09 22:32 | disposition home or self-care (01) ==
PROVIDERS: Emergency Provider Emergency Medicine
DX: R51.9 Headache, unspecified (principal); Z79.82 Long term (current) use of aspirin; Z72.0 Tobacco use
CPT/HCPCS: 36415; 70450; 80053; 83735; 83880; 85025; 99284

== ENCOUNTER 2023-04-21 10:25 | Emergency (ER) | payer MEDICAID, SELFPAY ==
[2023-04-21 10:28] VITALS: BP 125/80; PULSE 84; RESP 16; TEMP 36.6; O2SAT 99
--- NOTE | 2023-04-21 10:49 | ECG_ITS ---
Test Date: 2023-04-21 Pat Name: Bryan Day Department: Room: Gender: Male Reconciliation Analyst: : 1970 Requested By: Briana Regalado Order Number: [id number] Usha MD: Madan Nunez M.D. Measurements Intervals [place] Rate: 85 P: 72 OR: 120 QRS: 70 QRSD: 88 T: 68 QT: 365 QTc: 435 Interpretive Statements SINUS RHYTHM WITH SINUS ARRHYTHMIA Compared to ECG 02/08/2023 09:37:51 No significant changes Electronically Signed On 04-22-2023 5:58:14 SALES AUDIT CLERK by Madan Nunez M.D. [id number]
--- NOTE | 2023-04-21 10:49 | XR_ITS ---
WS: [id number] XR chest 1V portable [id number] REASON FOR EXAM: chest pain FINDINGS: The heart and the mediastinum are within normal limits. Calcified granulomas disease in both hemithoraces. No acute or subacute pulmonary parenchymal or pleural abnormality. No significant abnormality of the bony thorax. IMPRESSION: No acute chest abnormality.
--- NOTE | 2023-04-21 11:34 | W.ED.CHESTPA ---
HPI - Chest Pain General: Chief Complaint: Chest Pain Stated Complaint: sob, chest pain Time Seen by Provider: 04/21/23 11:29 History of Present Illness: 52-year-old man with a history of hypertension and tobacco dependence who presents the emergency room with chest pain. He says he has been feeling bad for about 3 days. He feels like something stepping on his chest. He has had some cough. Some shortness of breath. He says he is sleepy all the time. He has no nausea or vomiting. No fevers. No abdominal pain. No diarrhea. says he looks pale. They say they have had some cardiac workup done recently with a stress test but do not have any results and the ordering provider will not be back from vacation for another 2 weeks. Review of Systems Narrative: Constitutional symptoms: Negative except as documented in HPI. Skin symptoms: Negative except as documented in HPI. Eye symptoms: Negative except as documented in HPI. ENMT symptoms: Negative except as documented in HPI. Respiratory symptoms: Negative except as documented in HPI. Cardiovascular symptoms: Negative except as documented in HPI. Gastrointestinal symptoms: Negative except as documented in HPI. Genitourinary symptoms: Negative except as documented in HPI. Musculoskeletal symptoms: Negative except as documented in HPI. Neurologic symptoms: Negative except as documented in HPI. Psychiatric symptoms: Negative except as documented in HPI. Endocrine symptoms: Negative except as documented in HPI. [facility] ED PFSH: Medical History No significant past medical history Surgical History No significant past surgical history Family History Denies family history of Diabetes CAD (coronary artery disease) Lung disease Cancer Hypertension Social History Smoking and tobacco/nicotine status: current every day tobacco/nicotine user Alcohol intake: never Substance/Drug Use: never Adopted: No Caregiver/support person: No Lives independently: No Household members: family service: No Current occupational status: unemployed and disabled Sexually active: Yes Do you think of yourself as: Straight/Heterosexual Current gender identity: Male Physical Exam Narrative: EXAM NARRATIVE: General: Alert, no acute distress. Skin: Warm, dry. Head: Normocephalic, atraumatic. Neck: Supple, trachea midline. Eye: Extraocular movements are intact. Ears, nose, mouth and throat: mucosa moist. Cardiovascular: Regular, Normal peripheral perfusion. Respiratory: Lungs are clear to auscultation, respirations are non-labored, breath sounds are equal, Symmetrical chest wall expansion. Gastrointestinal: Soft, Nontender, Non distended, Normal bowel sounds. Musculoskeletal: Normal ROM, no deformity. Neurological: Alert and oriented to person, place, time, and situation, No focal neurological deficit observed. Psychiatric: Cooperative, appropriate mood & affect. Course Vital Signs: Vital signs: Vital Signs Temperature 97.9 F 04/21/23 10:28 Pulse Rate 89 04/21/23 14:05 Respiratory Rate 16 04/21/23 14:05 Blood Pressure 132/72 04/21/23 14:05 Pulse Oximetry 98 04/21/23 14:05 Oxygen Delivery Me thod Room Air 04/21/23 10:28 MDM - Chest Pain Medical Decision Making Medical decision making: Differential diagnosis including but not limited to: Acute coronary syndrome, pneumonia, flu, COVID, atypical chest pain. Workup based on differential diagnosis: Basic lab work, EKG, chest x-ray. Chest x-ray: No acute process. No pneumothorax. No infiltrate. No cardiomegaly. This was reviewed and interpreted by myself the ER physician. EKG: Time 10:31 AM rate 85 normal sinus rhythm, No ST-T changes, no ectopy, normal SD & QRS intervals, This was reviewed and interpreted by myself the ER physician. Lab review: No leukocytosis. White count was 6. No anemia hemoglobin is 13. No electrolyte abnormalities. No renal failure. BUN and creatinine are 10 and 0.9. Flu and COVID are negative. Of note his blood alcohol level is 17 this morning. Lab Data 04/21/23 11:36 04/21/23 11:36 Laboratory Results WBC 6.14 10^3/uL (3.29-11.43) 04/21/23 11:36 RBC 4.59 10^6/uL (3.85-5.65) 04/21/23 11:36 Hgb 13.70 g/dL (11.27-16.99) 04/21/23 11:36 Hct 41.6 % (37-53) 04/21/23 11:36 MCV 90.6 fl (82-101) 04/21/23 11:36 MCH 29.8 pg (27-33) 04/21/23 11:36 MCHC 32.9 g/dL (30-55) 04/21/23 11:36 RDW 14.6 % (12.1-15.1) 04/21/23 11:36 Plt Count 320 10^3/cmm (157-399) 04/21/23 11:36 MPV 10.2 fL (7.4-10.4) 04/21/23 11:36 Neut % (Auto) 45.9 % 04/21/23 11:36 Lymph % (Auto) 42.7 % 04/21/23 11:36 [place] % (Auto) 7.5 % 04/21/23 11:36 Eos % (Auto) 2.3 % 04/21/23 11:36 Baso % (Auto) 1.1 % 04/21/23 11:36 Neut # (Auto) 2.82 10^3/uL (1.8-7.7) 04/21/23 11:36 Lymph # (Auto) 2.6 10^3/uL (0.8-4.8) 04/21/23 11:36 [place] # (Auto) 0.5 10^3/uL (0.2-0.9) 04/21/23 11:36 Eos # (Auto) 0.1 10^3/uL (0.0-0.8) 04/21/23 11:36 Baso # (Auto) 0.1 10^3/uL (0.0-0.1) 04/21/23 11:36 Nucleated RBC % (auto) 0 % 04/21/23 11:36 Nucleated RBCs # 0.0 /100WBC 04/21/23 11:36 Sodium 139 mmol/L (136-145) 04/21/23 11:36 Potassium 4.6 mmol/L (3.5-5.1) 04/21/23 11:36 Chloride 103 mmol/L (98-107) 04/21/23 11:36 Carbon Dioxide 24 mmol/L (22-29) 04/21/23 11:36 Anion Gap 16.6 (5-19) 04/21/23 11:36 BUN 10 mg/dL (6-20) 04/21/23 11:36 Creatinine 0.9 mg/dL (0.7-1.2) 04/21/23 11:36 GFR Calculation 87.9 mL/min (90-130) L 04/21/23 11:36 Glucose 75 mg/dL (65-115) 04/21/23 11:36 Calculated Osmolality 286 mOsm/kg (285-295) 04/21/23 11:36 Lactic Acid 1.8 mmol/L (0.5-2.2) 04/21/23 11:36 Calcium 9.2 mg/dL (8.5-10.5) 04/21/23 11:36 Total Bilirubin 0.2 mg/dL (0.15-1.2) 04/21/23 11:36 AST 49 U/L (0-40) H 04/21/23 11:36 ALT 43 U/L (0-41) H 04/21/23 11:36 Alkaline Phosphatase 91 U/L (40-130) 04/21/23 11:36 Troponin T Baseline 8 ng/L (0-15) 04/21/23 11:36 C-Reactive Protein 3.0 mg/L (0.0-4.9) 04/21/23 11:36 NT-Pro-B Natriuret Pep 44 pg/mL (0-125) 04/21/23 11:36 Total Protein 7.3 g/dL (6.6-8.7) 04/21/23 11:36 Albumin 4.5 g/dL (3.5-5.2) 04/21/23 11:36 Globulin 2.8 g/dL (1.3-4.6) 04/21/23 11:36 Amylase 84 U/L (28-100) 04/21/23 11:36 Lipase 34 U/L (13-60) 04/21/23 11:36 Urine Color Yellow (Yellow) 04/21/23 11:59 Urine Appearance Clear (CLEAR) 04/21/23 11:59 Urine pH 5 (5-7) 04/21/23 11:59 Ur Specific [place] 1.010 (1.005-1.030) 04/21/23 11:59 Urine Protein Neg (Negative) 04/21/23 11:59 Urine Glucose (UA) Norm (Normal) 04/21/23 11:59 Urine Ketones Negative (Negative) 04/21/23 11:59 Urine Blood Neg (Negative) 04/21/23 11:59 Urine Nitrate Negative (Negative) 04/21/23 11:59 Urine Bilirubin Neg (Negative) 04/21/23 11:59 Urine Urobilinogen Norm mg/dL (Negative) 04/21/23 11:59 Ur Leukocyte Esterase Trace (Negative) H 04/21/23 11:59 Urine RBC 0-4 /hpf (0-2) H 04/21/23 11:59 Urine WBC 0-4 /hpf (0-5) H 04/21/23 11:59 Ur Squamous Epith Cells 0-4 /hpf (0-5) H 04/21/23 11:59 Amorphous Sediment Not Reportable 04/21/23 11:59 Urine Bacteria Trace /hpf (NONE) 04/21/23 11:59 Urine Mucus Trace /hpf 04/21/23 11:59 Ethyl Alcohol 17 mg/dL (0-10) H 04/21/23 11:36 Influenza Type A Ag negative (Negative) 04/21/23 11:59 Influenza Type B Ag negative (Negative) 04/21/23 11:59 All radiology interpretation(s) finalized by discharge Other Data - Discharged home - Discussed findings and plan with patient. Answered any questions. - All laboratory values were reviewed and interpreted personally by myself, the ER physician - All imaging was reviewed and interpreted personally by myself, the ER physician. - Evaluation and treatment of this problem were appropriate in the emergency setting Discharge Plan Discharge Patient Disposition: Home Clinical Impression: Chest pain, non-cardiac, Acute upper respiratory infection Condition: Stable Prescriptions: New Zithromax Z-Lew 250 mg tablet See Rx Instructions .ROUTE .COMPLEX Qty: 6 0RF Rx Instructions: For 250 mg dose pack: take 500 mg today (day 1), then 250 mg for 4 days (days 2-5) prednisone 20 mg tablet 60 mg PO DAILY 5 Days Qty: 15 0RF No Action (DME) shoulder immobilizer with abduction pillow See Rx Instructions .Route .MEDSUPPLY Qty: 1 0RF Rx Instructions: As directed (DME) ASO to left See Rx Instructions .Route .MEDSUPPLY Qty: 1 0RF Rx Instructions: As directed Nitrostat 0.4 mg Tablet, Sublingual 0.4 mg SUBLINGUAL Q5M PRN (Reason: Chest Pain) Rx Instructions: do not exceed 3 doses per episode isosorbide mononitrate 30 mg tablet extended release 24 hr 30 mg PO DAILY PRN (Reason: takes when he thinks he needs) metoprolol tartrate 25 mg tablet 25 mg PO BID PRN (Reason: takes when he thinks he needs) ibuprofen 200 mg Tablet 400 - 800 mg PO Q6H PRN (Reason: Pain) aspirin 81 mg tablet,delayed release (DR/EC) 81 mg PO DAILY PRN (Reason: Chest Pain) Flomax 0.4 mg capsule 0.4 mg PO QPM PRN (Reason: unknown) Discharge Orders: Discharge ED (Routine); Ordered 04/21/23 Ordered By: Briana Glover Referrals: Emani Gray FNP [Primary Care Provider] - (You have been screened and evaluated and felt safe for discharge. Health conditions do change or evolve sometimes and as such it is important that you follow up with your Primary Doctor to be re checked, 3-5 days is a general good time frame for follow up. You are always welcome to return to the ED for re assessment if your symptoms are worsening or you have new concerns) Discharge Diet: Advance as tolerated Discharge Activity: Resume usual activity Patient Instructions: Opioid Safety, Pain Management, Upper Respiratory Infection - Adult Coding Level of Care Code ED Truck Guard for Maritza Tapia
[2023-04-21 11:54] LABS: Basophils # 0.1 10^3/uL (0.0-0.1); Basophils % 1.1 %; Eosinophils # 0.1 10^3/uL (0.0-0.8); Eosinophils % 2.3 %; Hematocrit 41.6 % (37-53); Lymphocytes # 2.6 10^3/uL (0.8-4.8); Lymphocytes % 42.7 %; Mean Corpuscular HGB Conc 32.9 g/dL (30-55); Mean Corpuscular Hemoglobin 29.8 pg (27-33); Mean Corpuscular Volume 90.6 fl (82-101); Mean Platelet Volume 10.2 fL (7.4-10.4); Monocytes # 0.5 10^3/uL (0.2-0.9); Monocytes % 7.5 %; Neutrophils # 2.82 10^3/uL (1.8-7.7); Neutrophils % 45.9 %; Nucleated Red Blood Cells % 0 %; Platelet Count 320 10^3/cmm (157-399); Red Blood Count 4.59 10^6/uL (3.85-5.65); Red Cell Distribution Width 14.6 % (12.1-15.1); White Blood Count 6.14 10^3/uL (3.29-11.43)
--- NOTE | 2023-04-21 11:54 | PC.PHAR ---
Addendum entered by Liseth Bryan 04/21/23 12:42: pts mother called back and verified pts medications-states the pt doesnt take his meds like he should-pts mother states the pt takes the flomax prn ext shows last filled 01/17/23 30d/s-pts mother states pt doesnt take prozac 10mg daily filled 01/24/23 30d/s,hydroxyzine hcl 25mg tid prn filled 01/24/23 20d/s prilosec 40mg daily filled 11/15/22 30d/s or sildenafil 100mg prn filled 09/08/22-pt states only takes his meds prn Original Note: pt states his mother kacy mondragon [phone] takes care of his medications-pt states he doesnt take his meds unless his face is red-called pts mother no answer
[2023-04-21 12:13] LABS: Troponin(5th) Baseline 8 ng/L (0-15)
[2023-04-21 12:18] LABS: Lactic Sepsis W/Reflex 1.8 mmol/L (0.5-2.2)
[2023-04-21 12:25] LABS: Influenza A by IFA negative (Negative); Influenza B by IFA negative (Negative)
[2023-04-21 12:26] LABS: Alanine Aminotransferase 43 U/L (0-41); Albumin Level 4.5 g/dL (3.5-5.2); Alcohol Level 17 mg/dL (0-10); Alkaline Phosphatase 91 U/L (40-130); Amylase 84 U/L (28-100); Anion Gap 16.6 (5-19); Aspartate Amino Transferase 49 U/L (0-40); Blood Urea Nitrogen 10 mg/dL (6-20); Calcium 9.2 mg/dL (8.5-10.5); Carbon Dioxide 24 mmol/L (22-29); Chloride 103 mmol/L (98-107); Globulin 2.8 g/dL (1.3-4.6); Glomerular Filtration Rate 87.9 mL/min (90-130); Glucose 75 mg/dL (65-115); Lipase 34 U/L (13-60); NT Pro B Type Natriuretic Pept 44 pg/mL (0-125); Osmolality Calculated 286 mOsm/kg (285-295); Potassium 4.6 mmol/L (3.5-5.1); Sodium 139 mmol/L (136-145); Total Bilirubin 0.2 mg/dL (0.15-1.2); Total Protein 7.3 g/dL (6.6-8.7)
[2023-04-21 12:26] LABS: Add Urine Culture? No; Bacteria Urine TRACE /hpf; Bilirubin Urine Neg (Negative); Blood Urine Neg (Negative); Glucose Urine UA Norm (Normal); Ketones Urine Negative (Negative); Leukocyte Esterase Urine Trace (Negative); Mucus Urine TRACE /hpf; Nitrate Urine Negative (Negative); Protein Urine Neg (Negative); RBC Urine 0-4 /hpf (0-2); Squamous Epithelial Cell Urine 0-4 /hpf (0-5); Urine Appearance Clear (CLEAR); Urine Color Yellow (Yellow); Urobilinogen Urine Norm (Negative); WBC Urine 0-4 /hpf (0-5); pH Urine 5 (5-7)
[2023-04-21 12:50] VITALS: BP 130/82; PULSE 75; RESP 16; O2SAT 97
[2023-04-21 14:05] VITALS: BP 132/72; PULSE 89; RESP 16; O2SAT 98
[2023-04-21 15:18] VITALS: BP 132/72; PULSE 89; RESP 16; TEMP 36.6; O2SAT 98
[2023-04-21 15:21] LABS: Troponin 5 2HR 7.44 ng/L (0-15); Troponin 5 2HR Delta -0.56 ABS# (0-10)
[2023-04-21 15:41] LABS: Adenovirus Not Detected (NOT DETECT); Chlamydia Pneumoniae Not Detected (NOT DETECT); Coronavirus 229E,HKU1,NL63,OC4 Not Detected (NOT DETECT); Human Metapneumovirus Not Detected (NOT DETECT); Human Rhinovirus/Enterovirus Not Detected (NOT DETECT); Influenza A Not Detected (NOT DETECT); Influenza A H1 Not Detected (NOT DETECT); Influenza A H1-2009 Not Detected (NOT DETECT); Influenza A H3 Not Detected (NOT DETECT); Influenza B Not Detected (NOT DETECT); Mycoplasma Pneumoniae Not Detected (NOT DETECT); Parainfluenza Virus Type 1 Not Detected (NOT DETECT); Parainfluenza Virus Type 2 Not Detected (NOT DETECT); Parainfluenza Virus Type 3 Not Detected (NOT DETECT); Parainfluenza Virus Type 4 Not Detected (NOT DETECT); Respiratory Syncytial Virus A Not Detected (NOT DETECT); Respiratory Syncytial Virus B Not Detected (NOT DETECT); SARS-COV-2 Not Detected (NOT DETECT)
== END 2023-04-21 15:19 | disposition home or self-care (01) ==
PROVIDERS: Emergency Provider Emergency Medicine; PCP Nurse Practitioner
DX: R07.89 Other chest pain (principal); J06.9 Acute upper respiratory infection, unspecified; Z79.82 Long term (current) use of aspirin; Z72.0 Tobacco use; Z11.52 Encounter for screening for COVID-19
CPT/HCPCS: 36415; 71045; 80053; 80307; 81001; 82150; 83605; 83690; 83880; 84484; 85025; 86140; 87635; 87804; 93005; 99285

== ENCOUNTER 2023-05-10 10:41 | Outpatient (CLI) | payer MEDICAID, SELFPAY ==
--- NOTE | 2023-05-10 06:30 | USCV_ITS ---
Bryan Day Age: 52 Gender: M : 1970 Exam Date: 05/10/2023 10:52 Ordering Phys: Zaria Dee MD ([email or web address]) Technologist: CT Exam Location: [facility] [place] Indication: sob,cp BP: 124 / 84 HR: Rhythm: Sinus Technical Quality: Adequate MEASUREMENTS (Male / Female) Normal Values 2D ECHO LVOT Diameter 2.4 cm LV Ejection Fraction MOD 2C 62.6 % LV Ejection Fraction 2C AL 0.0 % LA Diameter 2.9 cm Aorta at Sinotubular Diameter 2.9 cm IVC Diameter 2.0 cm M-MODE LA Ao Ratio MM 1.2 AV Cusp Separation MM 2.7 cm DOPPLER AV Peak Velocity 109.0 cm/s LVOT Peak Velocity 101.0 cm/s AV Area Cont Eq vti 5.3 cm squared AV Area Cont Eq pk 4.3 cm squared MV Peak Velocity 79.0 cm/s MV Area PHT 2.2 cm squared Mitral E to A Ratio 0.8 TV Peak Velocity 116.0 cm/s TR Peak Velocity 117.0 cm/s TR Peak Gradient 5.5 mmHg TV Peak E Velocity 79.0 cm/s Right Atrial Pressure 3.0 mmHg Pulmonary Artery Systolic Pressu 8.5 mmHg PV Peak Velocity 95.0 cm/s FINDINGS Left Ventricle Normal left ventricular size and systolic function, EF 62.6%.no regional wall motion abnormalities. Right Ventricle The right ventricle is normal in size and function. Right Atrium The right atrium is normal in size. Left Atrium The left atrium is normal in size. Mitral Valve Trace mitral valve regurgitation. Aortic Valve No gross morphologic abnormalities noted Tricuspid Valve No gross morphologic abnormalities noted Pulmonic Valve No gross morphologic abnormalities noted Pericardium Normal pericardium without effusion. Aorta Normal ascending aorta dimension. IVC The inferior vena cava appears normal. CONCLUSIONS Normal left ventricular size and systolic function, EF 62.6%. No regional wall motion abnormalities. Trace mitral valve regurgitation. Normal cardiac chamber sizes. There is no pericardial effusion. There are no intracardiac masses. No similar previous studies are available for comparison Dr Zaria Dee MD [facility] (Electronically Signed) Final Date: 10 May 2023 13:24 S
== END 2023-05-10 10:42 | disposition home or self-care (01) ==
LOC: RAD 10:42
PROVIDERS: PCP Nurse Practitioner; Visit Provider Internal Medicine Cardiovascular Disease
DX: I34.0 Nonrheumatic mitral (valve) insufficiency (principal); R06.09 Other forms of dyspnea
CPT/HCPCS: 93306

== ENCOUNTER 2023-05-23 07:03 | Outpatient (CLI) | payer MEDICAID, SELFPAY ==
[2023-05-23 07:39] VITALS: BP 125/89; PULSE 87; RESP 18; TEMP 36.5; O2SAT 96; BMI 28.7
[2023-05-23 07:44] LABS: Basophils # 0.1 10^3/uL (0.0-0.1); Basophils % 1.1 %; Eosinophils # 0.4 10^3/uL (0.0-0.8); Eosinophils % 6.3 %; Hematocrit 40.7 % (37-53); Lymphocytes # 2.3 10^3/uL (0.8-4.8); Lymphocytes % 40.5 %; Mean Corpuscular HGB Conc 33.7 g/dL (30-55); Mean Corpuscular Volume 89.3 fl (82-101); Mean Platelet Volume 10.2 fL (7.4-10.4); Monocytes # 0.6 10^3/uL (0.2-0.9); Monocytes % 10.2 %; Neutrophils # 2.33 10^3/uL (1.8-7.7); Neutrophils % 41.5 %; Nucleated Red Blood Cells % 0 %; Platelet Count 287 10^3/cmm (157-399); Red Blood Count 4.56 10^6/uL (3.85-5.65); Red Cell Distribution Width 14.5 % (12.1-15.1)
[2023-05-23 07:50] LABS: Anion Gap 16.5 (5-19); Blood Urea Nitrogen 23 mg/dL (6-20); Calcium 9.3 mg/dL (8.5-10.5); Carbon Dioxide 23 mmol/L (22-29); Chloride 103 mmol/L (98-107); Creatinine Clr Calc Pharmacy 119.5746; Glomerular Filtration Rate 100.7 mL/min (90-130); Glucose 89 mg/dL (65-115); Osmolality Calculated 289 mOsm/kg (285-295); Potassium 4.5 mmol/L (3.5-5.1); Sodium 138 mmol/L (136-145)
[2023-05-23] MEDS: aspirin 325 mg Tablet PO (08:11)
[2023-05-23] MEDS: diphenhydrAMINE 50 mg Capsule PO (08:12)
--- NOTE | 2023-05-23 08:30 | XACV_ITS ---
Exam Room: 2 Ht: 178 cm Wt: 91 kg BSA: 2.14 m2 Gender: Male : 1970 Any Known Allergies: Other Exam Priority: Routine Procedure(s): Procedure Description: Diagnostic procedure Procedure Description: Left Heart Catheterization Procedure Description: Left ventriculography Procedure Description: Coronary Angiography Luiz [facility]; Diagnostic Cath Status: Elective Diagnostic Findings * The left main is a medium sized vessel with no significant stenotic lesions. * The left anterior descending artery is a medium caliber vessel which appears to wraparound the LV apex minimally. The mid LAD was found to have an area of eccentric compression of around 50 to 60%. The artery gives of proximal high diagonal branch of equal caliber with no significant lesions. * The intermedius artery is a medium caliber vessel with minimal intimal irregularities proximally. No significant stenotic lesions were noted. * The left circumflex artery is a medium caliber vessel with an ostial around 20% narrowing. No significant lesions were noted. * The right coronary artery is a medium caliber dominant vessel which also was found to have no significant stenotic lesions. Conclusions 1. This is a 52-year-old white male with history of high blood pressure, dyslipidemia, smoking abuse , alcohol abuse and substance abuse, presents with complaints of recurrent episodes of chest pains. He had multiple ER visits with these complaints. He had a Myocardial perfusion imaging which revealed a small area of reversible defect in the inferior wall. In view of his ongoing episodes of chest pains, in order to further evaluate his coronary status, a cardiac catheterization was recommended. Patient underwent left heart catheterization with left and right coronary angiogram and LV angiogram today. The findings are as follows.. 2. 1. Normal left main 2. There was a 50 to 60% extrinsic compression of the mid LAD, suggesting myocardial bridge. 3. Mild disease in the other vessels.4. Normal LV ejection fraction 50%.5. Features of left-ventricular diastolic dysfunction with an LVEDP of 26 mmHg. Diagnostic RX Recommendation: medical therapy and/or counseling LV EDP: 26 mmHg Ventriculography Ejection Fraction: 50.0 % Left Ventriculography Findings: * The LV gram was performed in the CHAMBERS projection. The overall LV ejection fraction was around 50%. No significant mitral valve prolapse or mitral regurgitation. No filling defects were noted. Pressures Phase:Rest AO : 118 / 80 ( 96 ) @ 9:48:00 AM 110 / 79 ( 95 ) @ 9:51:00 AM 118 / 88 ( 104 ) @ 9:55:00 AM 123 / 73 ( 97 ) @ 10:01:00 AM 137 / 67 ( 98 ) @ 10:01:00 AM LV : 125 / 12 / 26 @ 10:00:00 AM 129 / 11 / 31 @ 10:01:00 AM 127 / 11 / 29 @ 10:01:00 AM Valves Phase:DefaultPhase AV : 3.0 @ 9:06:41 AM 3.0 @ 9:06:41 AM AV Mean Gradient: 10.0 @ 9:06:41 AM Clinical Evaluation EBL: 5mL-10mL Procedural Details Procedure Consent Obtained. Pre-Procedure Time Out. Identified patient by full name and date of as verbalized by the patient/guarantor. Does the consent match the physician's order: Yes. Accurate & Complete Informed Consent: Yes. Inpatient/Outpatient History & Physical on Chart: Yes. If H&P is completed, is and addenduem needed: No; If yes, is the addendum complete: N/A. Visualize and Verify Site with Patient/Guarantor: N/A. Relevant Radiology Images available: Yes. Pre-op teaching completed and patient verbalized understanding. The risks, benefits, and alternatives of sedation and/or procedure were discussed by physician. The patient agrees to continue. Procedure started. [facility] Clinical Fraility Score: 3: Managing Well. Model Artists' Indications: Suspected CAD. Chest Pain Symptom Assessment: Atypical Angina. Correct patient, site and procedure confirmed by cath team. Current diagnosis: Chest Pain. PERRLA. Strong, equal hand tool pusher bilaterally. Lungs clear x 5 lobes. IV Site on Arrival: 20 gauge in the left anticubital. IV Fluids: 0.9% NaCl at KVO. 0 mL infused prior to laborer gold leaf. Pre Procedural Pulses: bilateral dorsalis pedis was 3+. Pre Procedural Pulses: bilateral posterior tibial was Doppled. Pre Procedural Pulses: bilateral radial was 3+. Oxygen started at 2liters/min via nasal canula. right groin was prepped with chloroprep then draped in the usual sterile fashion. right radial was prepped with chloroprep then draped in the usual sterile fashion. Physician notified. Baseline sample Acquired. HR: 49 BPM. Physician arrived. Physician scrubbed in. Immediate Pre-Procedure Time Out. Correct Patient: Yes; Correct Procedure: Yes; Correct Site: Yes; Correct Patient Position: Yes; Correct Supplies: Yes; Dried Flammable Prep: Yes; Blood Products Available: N/A;. Lidocaine 1% infiltrated to the right radial. Arterial access obtained. A 5 iranian Theodore catheter in over wire. Multiple views taken of left coronary artery. Multiple views taken of left coronary artery. Catheter removed over the exchange wire. A 5 iranian JR4 catheter in over wire. Multiple views taken of right coronary artery. Catheter removed over the exchange wire. A 5 iranian Angled Pig catheter in over wire. EDP Sample taken: LV 125/12,26; HR: 45 BPM; SpO2: 98%. LV gram performed in CHAMBERS @ 10 mL/second for a total of 30 mL. EDP Sample taken: LV 129/11,31; HR: 52 BPM; SpO2: 98%. Pullback taken: LV 127/11,29; AO 123/73(97); Mean: 10mmHg, Peak to Peak: 3mmHg, SEP: 14sec/min; HR: 54 BPM; SpO2: 98%. Catheter removed over the exchange wire. A TR Band was successful obtaining hemostatsis at the Right Radial artery insertion site. Vital chart was stopped. Post Procedure: Pulses reassessed and unchanged. PERRLA. Strong, equal hand tool pusher bilaterally. No VTE prophylaxis required. Medication's Wasted: Lidocaine 1% = 1 mL. Medication's Wasted: Nitro = 49.8 mg. Medication's Wasted: Heparin = 1000 units. Medication's Wasted: Other = Fentanyl 50 mg. Total IV fluids: 300 mL. Complications: None. Estimated blood loss: 5mL-10mL. Responsiveness - Normal response to verbal stimuli; alert and oriented, PERRLA. Airway - Unaffected, no intervention required; spontaneous ventilation. Circulation: W/N/L, pulses unchanged. Nausea/Vomiting: No. Procedure completed. Patient transferred by wheelchair to CPRU. Access Site Site: Right Radial artery Sheath Size: 6 Fr Hemostasis Method: TR Band Hemostasis Success: Successful Procedure Medications Start: 8:33 AM Stop: 8:33 AM Medication: Versed 1 mg and Fentanyl 25 mcg Amount: 1 Route: I.V. Start: 8:37 AM Stop: 8:37 AM Medication: Versed Amount: 1 mg Route: I.V. Start: 8:42 AM Stop: 8:42 AM Medication: Fentanyl Amount: 25 mcg Route: I.V. Start: 8:45 AM Stop: 8:45 AM Medication: Nitrogylcerin Amount: 200 mcg Route: I.A. Start: 8:45 AM Stop: 8:45 AM Medication: 0.9% Saline Amount: 250 ml Route: I.V. bolus Start: 8:47 AM Stop: 8:47 AM Medication: Heparin Amount: 5000 units Route: I.V. I, the attending physician, have reviewed and verified all procedure medications. Yes, all medications given per verbal order History/Risk Factors Hypertension: No Dyslipidemia: No Peripheral Arterial Disease (PAD): No Myocardial Infarction ([place]): No Obesity: No Renal Disease: No Tobacco Use: Current/Recent(w/in 1 year) Prior Interventions PCI: No CABG: No Valve Surgery: No Report Signatures Finalized by Dr Zaria Dee MD [facility] on 05/24/2023 09:28 AM
--- NOTE | 2023-05-23 08:32 | W.PM.OPSUD ---
Surgery/Procedure H&P Update DATE OF PROCEDURE: May 23, 2023 DATE H&P PERFORMED: 05/08/23 H&P UPDATE INFORMATION: I have reviewed H&P completed within last 30 days, I have examined patient prior to procedure and No changes to prior documentation PREOP DIAGNOSIS: posssible ASHD PRIMARY INDICATION FOR PROCEDURE: Chest pain and abnormal myocardial perfusion imaging PLANNED PROCEDURE: Operation Date: 05/23/23 08:30 Proposed Procedures p Left Heart Cath 81359, I20.89, R94.39(Left) - Zaria Dee MD PATIENT REASSESSED PRIOR TO SEDATION, WITH NO CHANGE NOTED: Yes PHYSICAL EXAM: alert, oriented x 3, clear to auscultation bilaterally and regular rate & rhythm AIRWAY EVAL/ANESTHESIA PLAN: normal airway, see other exam findings, Monitored Anesthesia, Local Anesthesia, Risks, benefits & alternatives of sedation and/or procedure discussed and Patient agrees to continue as planned
[2023-05-23 09:12] VITALS: BP 134/81; PULSE 51; RESP 14; O2SAT 96
[2023-05-23 09:15] VITALS: BP 134/81; PULSE 43; RESP 15; O2SAT 95
--- NOTE | 2023-05-23 09:15 | SUR.PHASEI ---
IV FLUIDS SET AT 100 ML/HR POST CATH PER VERBAL ORDER FROM DR KILLIAN. INFUSING ORDERED.
--- NOTE | 2023-05-23 09:15 | SUR.PHASEI ---
PRE STRESS NOTE Received patient from manager laboratory. Status post cardiac catheterization via the right radial approach. TR Band in place- 20 ml air in the band. Site is hemostatic. Verbal post cath instuctions went over with patient/family. They understood well. Vitals and assessments per flowsheets. Call light in reach. Informed to call for needs.
[2023-05-23 09:30] VITALS: BP 128/72; PULSE 47; RESP 14; O2SAT 97
[2023-05-23 09:45] VITALS: BP 130/70; PULSE 43; RESP 14; O2SAT 98
[2023-05-23 12:00] VITALS: BP 135/75; PULSE 46; RESP 12; TEMP -13.6; TEMP 7.6; O2SAT 98
--- NOTE | 2023-05-23 13:30 | PC.NURSE ---
TR band removed per protocol. No bleeding, or hematoma present.
== END 2023-05-23 14:49 | disposition home or self-care (01) ==
LOC: CCL 07:08 → CSU 10:05
PROVIDERS: PCP Nurse Practitioner; Visit Provider Internal Medicine Cardiovascular Disease
DX: I25.118 Atherosclerotic heart disease of native coronary artery with other forms of angina pectoris (principal); E78.5 Hyperlipidemia, unspecified; Z86.19 Personal history of other infectious and parasitic diseases; F10.21 Alcohol dependence, in remission; F15.11 Other stimulant abuse, in remission; R03.0 Elevated blood-pressure reading, without diagnosis of hypertension
CPT/HCPCS: 36415; 80048; 85025; 93458; 96361; 96365; 99152; 99153; C1769; C1887; C1894; J1644; J2250; J3010; J3490; J7030; Q0163; Q9967